=== PATIENT | male | born 1945 | race Caucasian/White ===

== ENCOUNTER → 2017-07-13 15:02 | Outpatient (CLI) | payer MEDICARE, OTHER, SELFPAY ==
[2017-07-13 16:23] LABS: Absolute Lymphocyte Count 1.13 X10^3/ul (0.83-4.51); Absolute Neutrophil Count 4.9 X10^3/uL (2.0-7.7); Basophil# 0.01 X10^3/uL; Basophil% 0.1 % (0-1); Eosinophil# 0.11 X10^3/uL; Eosinophils% 1.6 % (0-5); Hematocrit 42.9 % (40-54); Hemoglobin 14.4 g/dl (13.0-16.5); Lymphocyte # 1.13 X10^3/ul (4.0); Lymphocyte % 16.8 % (19-41); Mean Corp Hgb Conc 33.6 g/gl (32-36); Mean Corpuscular Hgb 29.6 pg (27.0-32.0); Mean Corpuscular Volume 88.1 fL (80-94); Mean Platelet Vol. 12.4 fl (6.2-12.0); Monocyte# 0.59 X10^3/uL; Monocyte% 8.8 % (0-10); Neutrophil # 4.86 X10^3/uL (2.7-7.7); Neutrophil % 72.6 % (47-70); Platelet Count 174 K/mm3 (150-450); RBC Distribution Width CV 12.5 % (11.6-14.6); RBC Distribution Width SD 39.9 fl (35.1-43.9); Red Blood Count 4.87 M/mm3 (4.6-6.2); White Blood Count 6.7 K/mm3 (4.4-11.0)
[2017-07-13 16:25] LABS: POSITIVE COUNT NO; POSITIVE DIFFERENTIAL NO; POSITIVE MORPHOLOGY NO
[2017-07-13 16:40] LABS: Vitamin D,25 Hydroxy 54.8 ng/mL (29.95-100.01)
[2017-07-13 16:47] LABS: ALB/GLOB Ratio 1.3 RATIO (0.9-2.4); AST(SGOT) 23 U/L (15-37); Alanine Aminotransfer ALT/SGPT 44 U/L (16-61); Alkaline Phosphatase 65 U/L (45-117); Anion Gap 10 (5-15); BUN 10 mg/dL (7-18); BUN/Creat Ratio 9.3 RATIO (10-20); Calcium,Total 8.8 mg/dL (8.5-10.1); Chloride 105 mmol/L (98-107); Creatinine, Serum 1.08 mg/dL (0.70-1.30); EST Glomerular Filtration Rate 72 mL/min (>60); Est Glom Filt Rate - Afr Amer 87 mL/min (>60); Glucose 97 mg/dL (74-106); PSA,Total - Annual Screen 0.22 ng/mL (0.00-4.00); Potassium 3.9 mmol/L (3.5-5.1); Sodium Level 141 mmol/L (136-145)
[2017-07-15 11:18] LABS: Hep C Antibodies <0.1 s/co ratio (0.0-0.9)
== END ==
PROVIDERS: Family Provider Internal Medicine; PCP Internal Medicine; Visit Provider Family Medicine Geriatric Medicine
DX: I10 Essential (primary) hypertension (principal); E55.9 Vitamin D deficiency, unspecified; Z12.5 Encounter for screening for malignant neoplasm of prostate; Z13.89 Encounter for screening for other disorder
CPT/HCPCS: 36415; 80053; 82306; 84153; 84443; 85025; 86803; G0103

== ENCOUNTER → 2017-07-15 08:16 | Outpatient (CLI) | payer MEDICARE, OTHER, SELFPAY ==
--- NOTE | 2017-07-15 08:21 | US_ITS ---
PROCEDURES: ULTRASOUND AORTA REASON FOR EXAM: Male, 72 years old. Screening for abdominal aortic aneurysm. TECHNIQUE: Ultrasound evaluation of the aorta was performed with real-time and static wallace-scale imaging. Limited study due to overlying bowel gas. COMPARISON: None. FINDINGS: There is no elongation or tortuosity of the abdominal aorta. Aorta measures: Middle 2.3 cm. Distal 1.7 cm. Aorta measure transversely: Middle 1.6 cm. Distal 1.2 cm. Right iliac artery measures: 0.9 cm. Right iliac artery measure transversely: 0.8 cm. Left iliac artery measures: 0.8 cm. Left iliac artery measure transversely: 0.8 cm. There is no demonstrated aneurysm.. US/US ABD AORTA SCREEN/AAA IMPRESSION: Limited examination due to overlying bowel gas. No abdominal aortic aneurysm is seen. Electronically Signed: Alfredo Parker MD at 9:54 EDT Tel [phone], Service support ,
== END ==
PROVIDERS: Family Provider Family Medicine Geriatric Medicine; PCP Family Medicine Geriatric Medicine; Visit Provider Family Medicine Geriatric Medicine
DX: I71.4 Abdominal aortic aneurysm, without rupture (principal)
CPT/HCPCS: 76706

== ENCOUNTER → 2017-10-17 13:42 | Outpatient (CLI) | payer MEDICARE, OTHER, SELFPAY ==
--- NOTE | 2017-10-17 14:28 | MRI_ITS ---
STUDY: MRI RIGHT HIP REASON FOR EXAM: Right hip/thigh/groin pain status post fall 8 days ago. TECHNIQUE: Standardized fat and water weighted pulse sequences were obtained in all 3 orthogonal planes. COMPARISON: None. FINDINGS: Normal hip joint without articular joint space narrowing. There is a nondisplaced fracture of the right supra-acetabular bone (T1 coronal images 14-16) with associated bone edema. There is a tear of the right anterosuperior labrum (proton-density sagittal image 13). Normal femoral head. Normal femoral neck and intratrochanteric region. Normal gluteus minimus, medius and iliopsoas tendons and distal insertions. There is mild right iliopsoas bursitis inversion recovery coronal image 22). There are nondisplaced fractures of the ischial aspect of the right superior obturator ring (T1 coronal image 20) and inferior aspect of the right obturator ring (inversion recovery axial image 30). Normal pubic symphysis. Normal ischial tuberosity. Normal origin of the hamstring tendons. Normal visualized sacroiliac joint, and sacral ala. There is mild edema in the right obturator externus muscle (inversion recovery axial image 26). MRI/Lower Ext Joint Only (Routine) IMPRESSION: Nondisplaced fractures of the right supra-acetabular bone and right obturator ring. Mild right iliopsoas bursitis. Tear of the right anterosuperior labrum. Mild edema in the right obturator externus muscle. N.B. : The above information has been verbally conveyed by Ricardo Flores MD to , Covering Physician, on 10/21/2017 15:31:06 (ET). Electronically Signed: Ricardo Flores MD at 15:44 EDT Tel , Service support ,
== END ==
PROVIDERS: Family Provider Family Medicine Geriatric Medicine; PCP Family Medicine Geriatric Medicine; Visit Provider Family Medicine Geriatric Medicine
DX: M25.551 Pain in right hip (principal)
CPT/HCPCS: 73721

== ENCOUNTER → 2018-01-16 14:01 | Outpatient (CLI) | payer MEDICARE, OTHER, SELFPAY ==
[2018-01-16 16:41] LABS: Absolute Lymphocyte Count 1.17 X10^3/ul (0.83-4.51); Absolute Neutrophil Count 5.2 X10^3/uL (2.0-7.7); Basophil# 0.01 X10^3/uL; Basophil% 0.1 % (0-1); Eosinophil# 0.04 X10^3/uL; Eosinophils% 0.6 % (0-5); Hematocrit 41.2 % (40-54); Hemoglobin 13.9 g/dl (13.0-16.5); Lymphocyte # 1.17 X10^3/ul (4.0); Lymphocyte % 17.1 % (19-41); Mean Corp Hgb Conc 33.7 g/gl (32-36); Mean Corpuscular Volume 91.8 fL (80-94); Mean Platelet Vol. 11.6 fl (6.2-12.0); Monocyte# 0.41 X10^3/uL; Neutrophil # 5.19 X10^3/uL (2.7-7.7); Neutrophil % 76.1 % (47-70); Platelet Count 189 K/mm3 (150-450); RBC Distribution Width CV 13.3 % (11.6-14.6); Red Blood Count 4.49 M/mm3 (4.6-6.2); Vitamin D,25 Hydroxy 49.8 ng/mL (29.95-100.01); White Blood Count 6.8 K/mm3 (4.4-11.0)
[2018-01-16 16:47] LABS: ALB/GLOB Ratio 1.3 RATIO (0.9-2.4); AST(SGOT) 18 U/L (15-37); Alanine Aminotransfer ALT/SGPT 43 U/L (16-61); Albumin, Serum 3.8 g/dL (3.2-5.0); Alkaline Phosphatase 60 U/L (45-117); Anion Gap 8 (5-15); BUN 15 mg/dL (7-18); BUN/Creat Ratio 15.6 RATIO (10-20); Calcium,Total 8.4 mg/dL (8.5-10.1); Chloride 105 mmol/L (98-107); Creatinine, Serum 0.96 mg/dL (0.70-1.30); EST Glomerular Filtration Rate 82 mL/min (>60); Est Glom Filt Rate - Afr Amer 99 mL/min (>60); Globulin 2.9 g/dL (2.2-4.2); Glucose 121 mg/dL (74-106); Potassium 4.2 mmol/L (3.5-5.1); Protein, Total 6.7 g/dL (6.4-8.2); Sodium Level 140 mmol/L (136-145); Thyroid Stim Hormone (TSH) 2.06 uIU/mL (0.358-3.74)
[2018-01-16 17:24] LABS: POSITIVE COUNT NO; POSITIVE DIFFERENTIAL NO; POSITIVE MORPHOLOGY NO
== END ==
PROVIDERS: Family Provider Family Medicine Geriatric Medicine; PCP Family Medicine Geriatric Medicine; Visit Provider Family Medicine Geriatric Medicine
DX: E11.9 Type 2 diabetes mellitus without complications (principal); I10 Essential (primary) hypertension; E55.9 Vitamin D deficiency, unspecified
CPT/HCPCS: 36415; 80053; 82306; 84443; 85025

== ENCOUNTER → 2018-04-04 16:49 | Outpatient (CLI) | payer MEDICARE, OTHER, SELFPAY | PROVIDERS: Family Provider Family Medicine Geriatric Medicine; PCP Family Medicine Geriatric Medicine; Referring Provider Family Medicine Geriatric Medicine; Visit Provider Family Medicine Geriatric Medicine | DX: R69 Illness, unspecified (principal) | CPT/HCPCS: 87633 ==

== ENCOUNTER → 2018-04-24 15:26 | Outpatient (CLI) | payer MEDICARE, OTHER, SELFPAY ==
--- NOTE | 2018-04-24 13:15 | COLBX_PTH ---
PATIENT: ANOOP BLANCO LOC: [facility] U#:[id number] AGE/SX: 79/M ROOM: RE04/24/[address]: Dr. Emre Armstrong MD : 1945 BED: DIS: SPEC #: [id number] RECD: 04/24/18 15:14 STATUS: PARISH CARBALLOTanja #: [id number] YUSUF: 04/24/18 13:[address]: Emre Armstrong DEPT: SURGICAL PATHOLOGY RECD BY: Tiffany Vergara ENTERED: 04/25/18 07:35 SP TYPE: COLON BX OTHR DR: Dr. Nahun Grady MD [facility] Tissues: Sigmoid colon biopsy Procedures: Surgery Specimen Level IV HEADER OPERATION: Colonoscopy with biopsy PRE-OP DIAGNOSIS: Screening / polyp TISSUE SUBMITTED: Distal sigmoid polyp, rule out adenoma MICROSCOPIC DIAGNOSIS Distal sigmoid colon polyp, biopsy: Tubular adenoma. AM:jax 04/25/18 MICROSCOPIC DESCRIPTION Slides are reviewed. GROSS DESCRIPTION Received in fixative is one container labeled with the patient's name and designated distal sigmoid. The specimen consists of multiple irregular fragments of light hampton soft tissue that in aggregate measure 0.6 x 0.2 x 0.1 cm. The specimen is totally submitted in one cassette. / AM:jax 04/24/18 TC:5 CPT: 29880
== END ==
PROVIDERS: Family Provider Family Medicine Geriatric Medicine; PCP Family Medicine Geriatric Medicine; Referring Provider Internal Medicine Gastroenterology; Visit Provider Internal Medicine Gastroenterology
DX: Z13.9 Encounter for screening, unspecified (principal); D12.5 Benign neoplasm of sigmoid colon
CPT/HCPCS: 88305

== ENCOUNTER → 2018-07-17 14:35 | Outpatient (CLI) | payer MEDICARE, OTHER, SELFPAY ==
[2018-07-17 17:09] LABS: Absolute Neutrophil Count 6.2 X10^3/uL (2.0-7.7); Basophil# 0.01 X10^3/uL; Basophil% 0.1 % (0-1); Eosinophil# 0.03 X10^3/uL; Eosinophils% 0.4 % (0-5); Hematocrit 42.5 % (40-54); Hemoglobin 14.4 g/dl (13.0-16.5); Lymphocyte % 12.7 % (19-41); Mean Corp Hgb Conc 33.9 g/gl (32-36); Mean Corpuscular Volume 91.4 fL (80-94); Mean Platelet Vol. 11.8 fl (6.2-12.0); Monocyte# 0.65 X10^3/uL; Monocyte% 8.3 % (0-10); Neutrophil # 6.16 X10^3/uL (2.7-7.7); Neutrophil % 78.4 % (47-70); Platelet Count 233 K/mm3 (150-450); RBC Distribution Width CV 13.2 % (11.6-14.6); RBC Distribution Width SD 43.6 fl (35.1-43.9); Red Blood Count 4.65 M/mm3 (4.6-6.2); White Blood Count 7.9 K/mm3 (4.4-11.0)
[2018-07-17 17:10] LABS: POSITIVE COUNT NO; POSITIVE DIFFERENTIAL NO; POSITIVE MORPHOLOGY NO
[2018-07-17 17:24] LABS: Vitamin D,25 Hydroxy 39.5 ng/mL (29.95-100.01)
[2018-07-17 17:30] LABS: ALB/GLOB Ratio 1.6 RATIO (0.9-2.4); AST(SGOT) 34 U/L (15-37); Alanine Aminotransfer ALT/SGPT 46 U/L (16-61); Albumin, Serum 4.1 g/dL (3.2-5.0); Alkaline Phosphatase 55 U/L (45-117); Anion Gap 6 (5-15); BUN 16 mg/dL (7-18); BUN/Creat Ratio 15.8 RATIO (10-20); Calcium,Total 8.6 mg/dL (8.5-10.1); Chloride 106 mmol/L (98-107); Creatinine, Serum 1.01 mg/dL (0.70-1.30); EST Glomerular Filtration Rate 77 mL/min (>60); Est Glom Filt Rate - Afr Amer 93 mL/min (>60); Globulin 2.6 g/dL (2.2-4.2); Glucose 95 mg/dL (74-106); Potassium 3.9 mmol/L (3.5-5.1); Protein, Total 6.7 g/dL (6.4-8.2); Sodium Level 137 mmol/L (136-145)
== END ==
PROVIDERS: Family Provider Family Medicine Geriatric Medicine; PCP Family Medicine Geriatric Medicine; Visit Provider Family Medicine Geriatric Medicine
DX: E11.9 Type 2 diabetes mellitus without complications (principal); I10 Essential (primary) hypertension; E55.9 Vitamin D deficiency, unspecified
CPT/HCPCS: 36415; 80053; 82306; 84443; 85025

== ENCOUNTER → 2018-09-18 12:07 | Outpatient (CLI) | payer MEDICARE, OTHER, SELFPAY ==
--- NOTE | 2018-09-18 12:15 | RAD_ITS ---
STUDY: X-RAY - PELVIS AND BILATERAL HIPS REASON FOR EXAM: Male, 73 years old. TECHNIQUE: AP view of the pelvis.? 2 views of the right hip, and 2 views of the left hip were obtained. COMPARISON: None. FINDINGS: There is a non-specific bowel gas pattern. Normal visualized soft tissue structures. Normal bilateral iliac wings, sacroiliac joints and visualized sacrum. Normal bilateral superior and inferior pubic rami. Normal pubic symphysis. Normal bilateral ischial tuberosities. Normal visualized right femoral head. Normal right acetabulum. Normal right hip joint. Normal visualized left femoral head. Normal left acetabulum. Normal left hip joint. Minimal atherosclerotic changes of the femoral arteries. RAD/Hips B/L min 2 views w/ Pelvis IMPRESSION: Normal x-ray examination of the pelvis and bilateral hips. Electronically Signed: Isabel Rodriguez, at 15:04 EDT Tel , Service support ,
--- NOTE | 2018-09-18 12:15 | RAD_ITS ---
STUDY: X-RAY - LUMBAR SPINE REASON FOR EXAM: Male, 73 years old. LOW BACK PAIN AND BILAT HIP PAIN. RT HIP ( and gt;) LT HIP. HX PELVIS FX TECHNIQUE: 5 view(s) of the lumbar spine were obtained. COMPARISON: None FINDINGS: Normal lumbar lordosis. There is no spondylolisthesis on extension. There is multilevel endplate spondylosis of the lumbar vertebrae. There is multi-level degenerative disc disease with multi-level disc space narrowing. There is atherosclerotic calcification of the abdominal aorta. RAD/L/S Spine w Bend Min 6 Vw IMPRESSION: Degenerative changes of the spine. Electronically Signed: Felicia Magdaleno MD at 14:27 EDT Tel , Service support ,
== END ==
PROVIDERS: Family Provider Family Medicine Geriatric Medicine; PCP Family Medicine Geriatric Medicine; Referring Provider Family Medicine Geriatric Medicine; Visit Provider Family Medicine Geriatric Medicine
DX: M54.5 Low back pain (principal); M25.551 Pain in right hip; M25.552 Pain in left hip
CPT/HCPCS: 72114; 73521

== ENCOUNTER → 2018-11-23 13:23 | Outpatient (CLI) | payer MEDICARE, OTHER, SELFPAY ==
[2018-10-31 13:54] VITALS: BMI 25.9
--- NOTE | 2018-11-23 13:24 | ECHOD_ITS ---
Reason For Study: S/P CABG Procedure This was a 2D Doppler, Color Flow transthoracic echocardiogram. Exam performed in department. Left Ventricle Normal size and thickness. The estimated ejection fraction is 65 %. Stage 1 diastolic dysfunction. No regional wall motion abnormalities noted. Right Ventricle Mildly dilated right ventricle. Normal systolic function. Atria Normal left atrium. Normal right atrium. Normal atrial septum. Mitral Valve The mitral valve is structurally normal. No prolapse or stenosis seen. Tricuspid Valve Normal tricuspid valve. Trivial tricuspid valve insufficiency. Right ventricular systolic pressure estimated to be 32 mmHg. Aortic Valve Trisinus/trileaflet aortic valve. Normal aortic valve. Pulmonic Valve Normal pulmonic valve. Great Vessels Normal aortic root. Normal arch. Normal inferior vena cava. Inferior vena cava collapse with sniff. Pericardium/Pleural No pericardial effusion. MMode/2D Measurements & Calculations LVIDd: 4.9 cm IVSd: 0.93 cm Ao root diam: 3.1 cm LVIDs: 3.3 cm LVPWd: 0.88 cm RVDd: 3.5 cm FS: 32.9 % LAV(MOD-bp): 48.8 ml LA A4 area: 17.4 cm2 LA dimension(2D): 3.4 cm LAV(MOD-bp) Indexed: 26.7 ml/m2 LAV(MOD-sp2): 50.7 ml LAV(MOD-sp4): 45.4 ml RA A4 area: 12.6 cm2 Time Measurements MV dec time: 0.23 sec Doppler Measurements & Calculations MV E max henrry: 64.8 cm/sec Lat Peak E' Henrry: 13.4 cm/sec Med Peak E' Henrry: 6.7 cm/sec MV A max henrry: 74.5 cm/sec E/E' lat: 4.8 E/E' med: 9.7 MV E/A: 0.87 Ao V2 max: 150.8 cm/sec LV V1 max: 112.3 cm/sec PA V2 max: 126.5 cm/sec Ao max P.1 mmHg LV V1 max P.0 mmHg TR max henrry: 255.8 cm/sec TR max P.6 mmHg Interpretation Summary The estimated ejection fraction is 65 %. Stage 1 diastolic dysfunction. Mildly dilated right ventricle. Trivial tricuspid valve insufficiency. Right ventricular systolic pressure estimated to be 32 mmHg. There is no comparison study available. Ordering Physician: Carlos Britt Referring Physician: Nahun Grady Chi Performed By: Mel Mahmood RDCS, RVT
== END ==
PROVIDERS: Family Provider Family Medicine Geriatric Medicine; PCP Family Medicine Geriatric Medicine; Referring Provider Internal Medicine Cardiovascular Disease; Visit Provider Internal Medicine Cardiovascular Disease
DX: I25.10 Atherosclerotic heart disease of native coronary artery without angina pectoris (principal); Z95.1 Presence of aortocoronary bypass graft
CPT/HCPCS: 93306

== ENCOUNTER → 2019-01-15 10:34 | Outpatient (CLI) | payer MEDICARE, OTHER, SELFPAY ==
[2019-01-08 08:48] VITALS: BMI 26.6
--- NOTE | 2019-01-15 11:07 | RAD_ITS ---
STUDY: X-RAY - ABDOMEN/PELVIS REASON FOR EXAM: Male, 73 years old. History of diarrhea. TECHNIQUE: AP supine and upright views of the abdomen and pelvis. COMPARISON: None. FINDINGS: Normal visualized lung bases. There is an abundance of fecal material throughout the colon. There is no demonstrated free abdominal air. The visualized liver, spleen and kidneys are grossly normal in size and morphology. Normal soft tissue structures. Minimal dextroscoliosis. RAD/Abd Inc Decub and/or Erect IMPRESSION: Large amount of fecal material is seen in the colon. Electronically Signed: Alfredo Parker, at 14:03 EDT , Service support ,
[2019-01-15 12:32] LABS: Absolute Neutrophil Count 5.3 X10^3/uL (2.0-7.7); Basophil# 0.02 X10^3/uL; Basophil% 0.3 % (0-1); Eosinophil# 0.04 X10^3/uL; Eosinophils% 0.6 % (0-5); Hematocrit 46.4 % (40-54); Hemoglobin 14.9 g/dL (13.0-16.5); Lymphocyte % 13.3 % (19-41); Mean Corp Hgb Conc 32.1 g/dL (32-36); Mean Corpuscular Hgb 29.2 pg (27.0-32.0); Mean Platelet Vol. 11.5 fl (6.2-12.0); Monocyte# 0.45 X10^3/uL; Monocyte% 6.7 % (0-10); NRBC Flagged by Analyzer 0 % (0-5); Neutrophil # 5.32 X10^3/uL (2.7-7.7); Neutrophil % 78.8 % (47-70); Platelet Count 205 K/mm3 (150-450); RBC Distribution Width CV 14.8 % (11.6-14.6); RBC Distribution Width SD 49.9 fl (35.1-43.9); White Blood Count 6.8 K/mm3 (4.4-11.0)
[2019-01-15 13:05] LABS: Vitamin D,25 Hydroxy 58.6 ng/mL (29.95-100.01)
[2019-01-15 13:11] LABS: ALB/GLOB Ratio 1.4 RATIO (0.9-2.4); AST(SGOT) 20 U/L (15-37); Alanine Aminotransfer ALT/SGPT 39 U/L (16-61); Albumin, Serum 3.9 g/dL (3.2-5.0); Alkaline Phosphatase 64 U/L (45-117); Anion Gap 8 (5-15); BUN 16 mg/dL (7-18); BUN/Creat Ratio 16.3 RATIO (10-20); Calcium,Total 8.7 mg/dL (8.5-10.1); Chloride 102 mmol/L (98-107); Creatinine, Serum 0.98 mg/dL (0.70-1.30); EST Glomerular Filtration Rate 79 mL/min (>60); Est Glom Filt Rate - Afr Amer 96 mL/min (>60); Globulin 2.7 g/dL (2.2-4.2); Glucose 182 mg/dL (74-106); Potassium 4.4 mmol/L (3.5-5.1); Protein, Total 6.6 g/dL (6.4-8.2); Sodium Level 138 mmol/L (136-145); Thyroid Stim Hormone (TSH) 2.16 uIU/mL (0.358-3.74)
== END ==
LOC: POLAB3 10:35 → RAD 11:03
PROVIDERS: Family Provider Family Medicine Geriatric Medicine; PCP Family Medicine Geriatric Medicine; Referring Provider Family Medicine Geriatric Medicine; Visit Provider Family Medicine Geriatric Medicine
DX: R19.7 Diarrhea, unspecified (principal); E11.9 Type 2 diabetes mellitus without complications; I10 Essential (primary) hypertension; E55.9 Vitamin D deficiency, unspecified
CPT/HCPCS: 36415; 74019; 80053; 82306; 84443; 85025

== ENCOUNTER 2019-02-16 10:00 | Outpatient (RCR) | payer MEDICARE, OTHER, SELFPAY ==
[2018-10-31 13:54] VITALS: BMI 25.9
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
--- NOTE | 2019-01-10 11:28 | HP.PTREVAL ---
Nahun Grady MD, It has been my pleasure to treat ANOOP BLANCO over the last 11 visits for LUMBAR RADICULOPATHY. Please see the progress note below for an update on the physical therapy plan of care! Subjective: PATIENT REPORTS DECREASED PAIN AFTER THERAPY. HE ALSO REPORTS HE CAN WALK A LITTLE BIT BETTER BUT IT STILL HURTS TO WALK. STILL GETTING INTERMITTENT ANNABEL THIGH PAIN RIGHT > LEFT. 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 PATIENT ALREADY HAS A MEMBERSHIP HE CAN USE. UPON EXAM TODAY: ROM deficit: PATIENT CONTINUES TO HAVE DECREASED RIGHT HIP ER BY APPROX 50% COMPARED TO LEFT. TIGHT ANNABEL HS'S AND GASTROC SOLEUS COMPLEX'S. Reflexes: NT. Dural Signs: NEGATIVE ANNABEL LE'S. Lumbar mvmt loss: flex - MOD. ext - MOD TO AKASH - CENTRAL LBP. R SG - MOD. L SG - MOD. Core strength: POOR Plan Plan: CONT PT DECREASING TO 2 TIMES A WEEK AND HELPING PATIENT TRANSITION TO GYM EQUIPMENT APPROPRIATE FOR POSTURE CORRECTION/STRENGTHENING, INSTRUCTION IN APPROPRIATE BODY MECHANICS AND ACTIVITY MODIFICATIONS. DLS STARTING WITH A NEUTRAL SPINE PROGRESSING ROM TOLERATED. ANNABEL LE ROM, STRETCHING AND STRENGTHENING. HEP INSTRUCTION. Goals Goal 1:: DECREASE C/O LOW BACK AND HIP PAIN Goal Time Frame: 4-6 Weeks Goal 2:: IMPROVE WALKING, STANDING AND HOMEMAKING FUNCTION Goal Time Frame: 4-6 Weeks Goal 3:: INSTRUCT IN PROPHYLAXIS Goal Time Frame: 4-6 Weeks Anticipated Interventions Patient/Client Instruction: Educate patient on: Condition, Plan of Care, Risk Factors, Benefits of Fitness Program For the Purpose of:: To improve self management Therapeutic Exercise to Include: Strength training, Body mechanics, Postural training, Flexibilty training, In an aquatic setting, Dynamic Lumbar Stabilization Comment: CONSIDER AQUATIC THERAPY IF NEEDED. For the Purpose of:: To decrease pain, To improve muscle performance and motor function, To increase tolerance to activity/condition/position, To improve ability of physical actions for home/community/work/leisure, To improve gait and locomotor functions Cryotherapy (ice pack, ice massage): Yes Thermo therapy (hot pack): Yes Ultrasound (thermal/non thermal): Yes For the Purpose of:: To decrease pain, To improve nutrient delivery to tissue Please do not hesitate to contact me at [phone] by phone or if you have questions or concerns regarding this new plan of care! Sincerely, Aissatou Cardozo, PT, Cert MDT
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
--- NOTE | 2019-02-16 12:46 | HP.PTDCSUM ---
HP - PT D/C Summary It has been my pleasure to treat ANOOP BLANCO under orders from Nahun Grady MD, for the diagnosis of LUMBAR RADICULOPATHY for a total of 19 visit(s). Discharge Date: 02/16/19 Please see the following information for a summary of their discharge status. - Subjective Subjective: PATIENT REPORTS HE KNOWS HOW TO DO HIS EX'S NOW. 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 STATES IT HURT FOR 3 DAYS. PATIENT REPORTS THAT OVER-ALL HE DEFINATELY FEELS LIKE HE IS GETTING STRONGER NOW. - Pain LOW BACK Pain Intensity (Out of 10): 0 - Overall Improvement % Improvement: 80 - Objective Objective/Function: ALL GOALS MET. PATIENT IS INDEP WITH A GYM EX PROGRAM. UPON EXAM TODAY: Lumbar mvmt loss: flex - MIN. ext - MOD TO AKASH. R SG - MOD. L SG - MOD - Goals Goal 1:: DECREASE C/O LOW BACK AND HIP PAIN Goal Progress: Goal Met Goal 2:: IMPROVE WALKING, STANDING AND HOMEMAKING FUNCTION Goal Progress: Goal Met Goal 3:: INSTRUCT IN PROPHYLAXIS Goal Progress: Goal Met - Plan Plan: D/C TO INDEP GYM AND HOME PROGRAMS. PATIENT IS AGREEABLE TO DISCHARGE. - D/C Information If there are questions or concerns regarding this patient's physical therapy, please feel free to call me at [phone]. Thank you for the referral of this patient. Sincerely, Aissatou Cardozo, PT, Cert MDT
== END 2019-02-16 19:00 | disposition home or self-care (01) ==
LOC: PT 10:00
PROVIDERS: Family Provider Family Medicine Geriatric Medicine; PCP Family Medicine Geriatric Medicine; Referring Provider Family Medicine Geriatric Medicine; Visit Provider Family Medicine Geriatric Medicine
DX: M54.5 Low back pain (principal)
CPT/HCPCS: 97035; 97110; 97162; 97530

== ENCOUNTER → 2019-05-18 09:12 | Outpatient (CLI) | payer MEDICARE, OTHER, SELFPAY ==
[2019-05-17 13:35] VITALS: BMI 25.9
[2019-05-18 10:04] LABS: AST(SGOT) 17 U/L (15-37); Alanine Aminotransfer ALT/SGPT 34 U/L (16-61); Alkaline Phosphatase 72 U/L (45-117); Cholesterol 139 mg/dL (200); High Density Lipoprotein 49 mg/dL; Triglycerides 189 mg/dL; Very Low Density Lipoprotein 38 mg/dL (5-40)
== END ==
PROVIDERS: PCP Family Medicine Geriatric Medicine; Referring Provider Internal Medicine Cardiovascular Disease; Visit Provider Internal Medicine Cardiovascular Disease
DX: E78.5 Hyperlipidemia, unspecified (principal); I25.10 Atherosclerotic heart disease of native coronary artery without angina pectoris
CPT/HCPCS: 36415; 80061; 80076

== ENCOUNTER → 2019-07-05 12:29 | Outpatient (CLI) | payer MEDICARE, OTHER, SELFPAY ==
[2019-05-17 13:35] VITALS: BMI 25.9
--- NOTE | 2019-07-05 12:32 | MRI_ITS ---
STUDY: MRI LUMBAR SPINE WITHOUT CONTRAST REASON FOR EXAM: Male, 74 years old. fall 2 yrs ago, R back pain into R leg, no relief with PT TECHNIQUE: Standardized fat and water weighted pulse sequences were obtained in the sagittal and axial planes. COMPARISON: None FINDINGS: No compression deformity or fracture line or bone marrow edema is present. Normal lumbar lordosis. There is no substantial scoliosis. Normal conus medullaris that terminates at the T12-L1 level. L1-2: A small disc osteophyte complex is present at the anterior aspect space. No posterior disc herniation or bulging is present. Normal bilateral facet joints. Normal central canal and bilateral lateral recesses. Normal bilateral intervertebral neural foramina. L2-3: Mild endplate degenerative signal is present. The disc is desiccated. Normal disc height and morphology. Normal bilateral facet joints. Normal central canal and bilateral lateral recesses. Normal bilateral intervertebral neural foramina. L3-4: Normal endplates. The disc is desiccated. Normal disc height and morphology. Normal bilateral facet joints. Normal central canal and bilateral lateral recesses. Normal bilateral intervertebral neural foramina. L4-5: Normal endplates. Moderate central canal stenosis is present with bilateral lateral recess stenosis and nerve root compression due to significant facet joint and ligamenta flava hypertrophy combined with mild diffuse disc bulging. The disc space is mildly to moderately narrowed. Normal bilateral intervertebral neural foramina. L5-S1: Normal endplates. Normal disc height, hydration and morphology. The facet joints are mildly to moderately hypertrophied and degenerated. Normal central canal and bilateral lateral recesses. Normal bilateral intervertebral neural foramina. Normal visualized sacral ala. There is mild paraspinal muscular atrophy. Colonic diverticulosis partially visualized. MRI/Spine Lumbar (Routine) IMPRESSION: 1. Multilevel degenerative changes, as described above. 2. Moderate central canal stenosis at L4-L5 primarily due to ligamenta flava and facet joint hypertrophy. Electronically Signed: Fermin Aly MD at 14:09 EDT , Service support ,
== END ==
PROVIDERS: PCP Family Medicine Geriatric Medicine; Referring Provider Family Medicine Geriatric Medicine; Visit Provider Family Medicine Geriatric Medicine
DX: M48.061 Spinal stenosis, lumbar region without neurogenic claudication (principal)
CPT/HCPCS: 72148

== ENCOUNTER → 2019-07-19 13:44 | Outpatient (CLI) | payer MEDICARE, OTHER, SELFPAY ==
[2019-05-17 13:35] VITALS: BMI 25.9
[2019-07-19 15:04] LABS: Absolute Lymphocyte Count 0.97 X10^3/uL (0.83-4.51); Absolute Neutrophil Count 10.8 X10^3/uL (2.0-7.7); Basophil# 0.03 X10^3/uL; Basophil% 0.2 % (0-1); Eosinophil# 0.02 X10^3/uL; Eosinophils% 0.2 % (0-5); Hematocrit 47.3 % (40-54); Hemoglobin 14.8 g/dL (13.0-16.5); Lymphocyte # 0.97 X10^3/ul (4.0); Lymphocyte % 7.7 % (19-41); Mean Corp Hgb Conc 31.3 g/dL (32-36); Mean Corpuscular Hgb 25.9 pg (27.0-32.0); Mean Corpuscular Volume 82.7 fL (80-94); Mean Platelet Vol. 12.3 fl (6.2-12.0); Monocyte# 0.78 X10^3/uL; Monocyte% 6.2 % (0-10); NRBC Flagged by Analyzer 0 % (0-5); Neutrophil % 85.3 % (47-70); Platelet Count 228 K/mm3 (150-450); RBC Distribution Width CV 14.6 % (11.6-14.6); RBC Distribution Width SD 42.7 fl (35.1-43.9); Red Blood Count 5.72 M/mm3 (4.6-6.2); White Blood Count 12.7 K/mm3 (4.4-11.0)
[2019-07-19 15:38] LABS: ALB/GLOB Ratio 1.6 RATIO (0.9-2.4); AST(SGOT) 15 U/L (15-37); Alanine Aminotransfer ALT/SGPT 32 U/L (16-61); Albumin, Serum 4.1 g/dL (3.2-5.0); Alkaline Phosphatase 60 U/L (45-117); Anion Gap 7 (5-15); BUN 24 mg/dL (7-18); BUN/Creat Ratio 23.8 RATIO (10-20); Chloride 101 mmol/L (98-107); Creatinine, Serum 1.01 mg/dL (0.70-1.30); EST Glomerular Filtration Rate 77 mL/min (>60); Est Glom Filt Rate - Afr Amer 93 mL/min (>60); Globulin 2.6 g/dL (2.2-4.2); Glucose 165 mg/dL (74-106); Potassium 4.3 mmol/L (3.5-5.1); Protein, Total 6.7 g/dL (6.4-8.2); Sodium Level 135 mmol/L (136-145); Thyroid Stim Hormone (TSH) 2.05 uIU/mL (0.358-3.74)
[2019-07-19 15:39] LABS: Vitamin D,25 Hydroxy 68.1 ng/mL
== END ==
PROVIDERS: PCP Family Medicine Geriatric Medicine; Referring Provider Family Medicine Geriatric Medicine; Visit Provider Family Medicine Geriatric Medicine
DX: I10 Essential (primary) hypertension (principal); E11.9 Type 2 diabetes mellitus without complications; E55.9 Vitamin D deficiency, unspecified
CPT/HCPCS: 36415; 80053; 82306; 84443; 85025

== ENCOUNTER → 2019-10-22 13:44 | Outpatient (CLI) | payer MEDICARE, OTHER, SELFPAY ==
[2019-05-17 13:35] VITALS: BMI 25.9
[2019-10-22 14:57] LABS: Absolute Lymphocyte Count 0.87 X10^3/uL (0.83-4.51); Absolute Neutrophil Count 5.7 X10^3/uL (2.0-7.7); Basophil# 0.02 X10^3/uL; Basophil% 0.3 % (0-1); Eosinophil# 0.04 X10^3/uL; Eosinophils% 0.6 % (0-5); Hematocrit 43.2 % (40-54); Hemoglobin 13.5 g/dL (13.0-16.5); Lymphocyte # 0.87 X10^3/ul (4.0); Mean Corp Hgb Conc 31.3 g/dL (32-36); Mean Corpuscular Hgb 26.8 pg (27.0-32.0); Mean Corpuscular Volume 85.7 fL (80-94); Mean Platelet Vol. 11.6 fl (6.2-12.0); Monocyte# 0.58 X10^3/uL; NRBC Flagged by Analyzer 0 % (0-5); Neutrophil # 5.69 X10^3/uL (2.7-7.7); Neutrophil % 78.7 % (47-70); Platelet Count 200 K/mm3 (150-450); RBC Distribution Width CV 15.3 % (11.6-14.6); RBC Distribution Width SD 47.5 fl (35.1-43.9); Red Blood Count 5.04 M/mm3 (4.6-6.2); White Blood Count 7.2 K/mm3 (4.4-11.0)
[2019-10-22 15:16] LABS: Vitamin D,25 Hydroxy 84.9 ng/mL
[2019-10-22 15:22] LABS: ALB/GLOB Ratio 1.4 RATIO (0.9-2.4); AST(SGOT) 23 U/L (15-37); Alanine Aminotransfer ALT/SGPT 36 U/L (16-61); Albumin, Serum 3.8 g/dL (3.2-5.0); Alkaline Phosphatase 54 U/L (45-117); Anion Gap 5 (5-15); BUN 16 mg/dL (7-18); BUN/Creat Ratio 16.9 RATIO (10-20); Chloride 105 mmol/L (98-107); Creatinine, Serum 0.95 mg/dL (0.70-1.30); EST Glomerular Filtration Rate 83 mL/min (>60); Est Glom Filt Rate - Afr Amer 100 mL/min (>60); Globulin 2.7 g/dL (2.2-4.2); Glucose 160 mg/dL (74-106); Potassium 4.4 mmol/L (3.5-5.1); Protein, Total 6.5 g/dL (6.4-8.2); Sodium Level 138 mmol/L (136-145); Thyroid Stim Hormone (TSH) 2.24 uIU/mL (0.358-3.74)
== END ==
PROVIDERS: PCP Family Medicine Geriatric Medicine; Visit Provider Family Medicine Geriatric Medicine
DX: E11.9 Type 2 diabetes mellitus without complications (principal); E55.9 Vitamin D deficiency, unspecified; I10 Essential (primary) hypertension
CPT/HCPCS: 36415; 80053; 82306; 84443; 85025

== ENCOUNTER → 2019-11-05 08:04 | Outpatient (CLI) | payer MEDICARE, OTHER, SELFPAY ==
[2019-05-17 13:35] VITALS: BMI 25.9
[2019-11-05 09:34] LABS: AST(SGOT) 22 U/L (15-37); Alanine Aminotransfer ALT/SGPT 35 U/L (16-61); Albumin, Serum 3.8 g/dL (3.2-5.0); Alkaline Phosphatase 54 U/L (45-117); Bilirubin, Direct 0.16 mg/dL (0.00-0.30); Cholesterol 105 mg/dL (200); Globulin 2.9 g/dL (2.2-4.2); High Density Lipoprotein 46 mg/dL; Protein, Total 6.7 g/dL (6.4-8.2); Triglycerides 125 mg/dL; Very Low Density Lipoprotein 25 mg/dL (5-40)
== END ==
PROVIDERS: PCP Family Medicine Geriatric Medicine; Referring Provider Internal Medicine Cardiovascular Disease; Visit Provider Internal Medicine Cardiovascular Disease
DX: E78.00 Pure hypercholesterolemia, unspecified (principal)
CPT/HCPCS: 36415; 80061; 80076

== ENCOUNTER → 2019-11-20 08:21 | Outpatient (CLI) | payer MEDICARE, OTHER, SELFPAY ==
[2019-11-20 08:18] VITALS: BMI 24.8
--- NOTE | 2019-11-20 08:23 | RAD_ITS ---
STUDY: X-RAY - LUMBAR SPINE REASON FOR EXAM: Male, 74 years old. RIGHT SIDE LBP TECHNIQUE: 4 view(s) of the lumbar spine were obtained. COMPARISON: 09/18/2018 FINDINGS: Normal lumbar lordosis. Mild dextroscoliosis. There is a normal alignment of the vertebrae. No subluxation on the flexion or extension views to suggest instability. There is multilevel endplate spondylosis of the lumbar vertebrae. There is multi-level degenerative disc disease with multi-level disc space narrowing. The soft tissue structures are unremarkable. RAD/L/S Spine Min 4 Views IMPRESSION: Mild dextroscoliosis with diffuse degenerative disc disease. No instability. Electronically Signed: Mauro Nunez MD at 16:50 EDT Tel , Service support ,
== END ==
PROVIDERS: PCP Family Medicine Geriatric Medicine; Referring Provider Orthopaedic Surgery; Visit Provider Orthopaedic Surgery
DX: M54.5 Low back pain (principal)
CPT/HCPCS: 72110

== ENCOUNTER → 2020-01-21 13:10 | Outpatient (CLI) | payer MEDICARE, OTHER, SELFPAY ==
[2020-01-21 14:01] LABS: Absolute Lymphocyte Count 1.18 X10^3/uL (0.83-4.51); Absolute Neutrophil Count 5.9 X10^3/uL (2.0-7.7); Basophil# 0.03 X10^3/uL; Basophil% 0.4 % (0-1); Eosinophil# 0.05 X10^3/uL; Eosinophils% 0.6 % (0-5); Hematocrit 46.4 % (40-54); Hemoglobin 13.8 g/dL (13.0-16.5); Lymphocyte # 1.18 X10^3/ul (4.0); Lymphocyte % 15.2 % (19-41); Mean Corp Hgb Conc 29.7 g/dL (32-36); Mean Corpuscular Hgb 24.9 pg (27.0-32.0); Mean Corpuscular Volume 83.6 fL (80-94); Mean Platelet Vol. 10.2 fl (6.2-12.0); Monocyte# 0.63 X10^3/uL; Monocyte% 8.1 % (0-10); NRBC Flagged by Analyzer 0 % (0-5); Neutrophil # 5.85 X10^3/uL (2.7-7.7); Neutrophil % 75.3 % (47-70); Platelet Count 328 K/mm3 (150-450); RBC Distribution Width CV 15.3 % (11.6-14.6); RBC Distribution Width SD 46.8 fl (35.1-43.9); Red Blood Count 5.55 M/mm3 (4.6-6.2); White Blood Count 7.8 K/mm3 (4.4-11.0)
[2020-01-21 14:58] LABS: ALB/GLOB Ratio 1.1 RATIO (0.9-2.4); AST(SGOT) 15 U/L (15-37); Alanine Aminotransfer ALT/SGPT 34 U/L (16-61); Albumin, Serum 3.6 g/dL (3.2-5.0); Alkaline Phosphatase 68 U/L (45-117); Anion Gap 8 (5-15); BUN 17 mg/dL (7-18); BUN/Creat Ratio 18.7 RATIO (10-20); Calcium,Total 9.2 mg/dL (8.5-10.1); Chloride 106 mmol/L (98-107); Creatinine, Serum 0.91 mg/dL (0.70-1.30); EST Glomerular Filtration Rate 87 mL/min (>60); Est Glom Filt Rate - Afr Amer 105 mL/min (>60); Globulin 3.4 g/dL (2.2-4.2); Glucose 134 mg/dL (74-106); Potassium 4.2 mmol/L (3.5-5.1); Sodium Level 143 mmol/L (136-145)
[2020-01-21 17:52] LABS: Vitamin D,25 Hydroxy 68.1 ng/mL
== END ==
PROVIDERS: PCP Family Medicine Geriatric Medicine; Visit Provider Family Medicine Geriatric Medicine
DX: E11.9 Type 2 diabetes mellitus without complications (principal); E55.9 Vitamin D deficiency, unspecified; I10 Essential (primary) hypertension
CPT/HCPCS: 36415; 80053; 82306; 84443; 85025

== ENCOUNTER → 2020-04-21 10:10 | Outpatient (CLI) | payer MEDICARE, OTHER, SELFPAY ==
[2020-04-21 12:49] LABS: Absolute Lymphocyte Count 1.17 X10^3/uL (0.83-4.51); Absolute Neutrophil Count 7.9 X10^3/uL (2.0-7.7); Basophil# 0.01 X10^3/uL; Basophil% 0.1 % (0-1); Eosinophil# 0.04 X10^3/uL; Eosinophils% 0.4 % (0-5); Hematocrit 44.7 % (40-54); Hemoglobin 13.2 g/dL (13.0-16.5); Lymphocyte # 1.17 X10^3/ul (4.0); Mean Corp Hgb Conc 29.5 g/dL (32-36); Mean Corpuscular Hgb 23.1 pg (27.0-32.0); Mean Corpuscular Volume 78.3 fL (80-94); Mean Platelet Vol. 12.5 fl (6.2-12.0); Monocyte# 0.64 X10^3/uL; Monocyte% 6.5 % (0-10); NRBC Flagged by Analyzer 0 % (0-5); Neutrophil % 80.7 % (47-70); Platelet Count 207 K/mm3 (150-450); RBC Distribution Width CV 14.9 % (11.6-14.6); RBC Distribution Width SD 42.3 fl (35.1-43.9); Red Blood Count 5.71 M/mm3 (4.6-6.2); White Blood Count 9.8 K/mm3 (4.4-11.0)
[2020-04-21 13:00] LABS: Vitamin D,25 Hydroxy 59.5 ng/mL
[2020-04-21 13:17] LABS: ALB/GLOB Ratio 1.3 RATIO (0.9-2.4); AST(SGOT) 17 U/L (15-37); Alanine Aminotransfer ALT/SGPT 33 U/L (16-61); Albumin, Serum 3.8 g/dL (3.2-5.0); Alkaline Phosphatase 59 U/L (45-117); Anion Gap 8 (5-15); BUN 19 mg/dL (7-18); BUN/Creat Ratio 19.2 RATIO (10-20); Calcium,Total 8.6 mg/dL (8.5-10.1); Chloride 105 mmol/L (98-107); Creatinine, Serum 0.99 mg/dL (0.70-1.30); EST Glomerular Filtration Rate 79 mL/min (>60); Est Glom Filt Rate - Afr Amer 95 mL/min (>60); Globulin 2.9 g/dL (2.2-4.2); Glucose 175 mg/dL (74-106); Potassium 4.4 mmol/L (3.5-5.1); Protein, Total 6.7 g/dL (6.4-8.2); Sodium Level 139 mmol/L (136-145); Thyroid Stim Hormone (TSH) 2.54 uIU/mL (0.358-3.74)
== END ==
PROVIDERS: PCP Family Medicine Geriatric Medicine; Visit Provider Family Medicine Geriatric Medicine
DX: E11.9 Type 2 diabetes mellitus without complications (principal); E55.9 Vitamin D deficiency, unspecified; I10 Essential (primary) hypertension
CPT/HCPCS: 36415; 80053; 82306; 84443; 85025

== ENCOUNTER 2020-06-13 09:00 | Outpatient (RCR) | payer MEDICARE, OTHER, SELFPAY ==
--- NOTE | 2020-02-08 13:58 | HP.PTEVAL ---
Patient's Visit Information ANOOP BLANCO is a 74 year old M referred to Physical Therapy by Dr. Janessa Brannon MD with a diagnosis of S/P L4-L5 LAMINECTOMY. Date of Evaluation: 02/08/20 Physical Therapist: Puneet Pedraza, PT, Cert MDT, OCS - Visit Plan Frequency: 2x /Week Duration: 8WEEKS Plan: PT INTERVENTIONS POSTURAL EX'S,DLS ABD/BACK,LE FLEXABLITY ,GENTLE STM LUMBAR PARASPINALS ,GENERAL CONDITIONING - Subjective This 74 y/o male presents to physical therapy s/p L4-5 laminectomy on 12/31/19. Patient had surgery done by DR Brannon at [facility]. Patient had lumbar pain many years worse for 2 1/2 years. Patient had MRI showed stenosis. Tried edpidural injection helped temporarly. Patient also had PT. Pror to surgery had radicular symptoms right leg. Currently patient has symmtrical pain. Patient aggraveting factors extended standing but walking makes back pain worse. Alleviating factors rest. Denies parathesia/tingling ,occasionally feet.Coughing/sneezing -. Bowel/bladder -.RTD Apr 08. Patient condition affects ADL's and housework tasks. Patient surgery affects QOL. SOCAIL: . 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 GAIT: reciprocal pattern. NEURO: denies parathesia/tingling,reflexes L3-4,L4-5,L5-S1. MMT: quads/hams 4/5,hip flexion 4-/5,ankle 5/5. LUMBAR ROM: flexion mod loss,extension mod loss,side glides min loss. FLEXABLITY: hams mod tight. INCSION: well approximate - Special Tests L/S Slump test left side: Negative L/S Slump test right side: Negative L/S Left Straight Leg Raise: Negative L/S Right Straight Leg Raise: Negative - Goals Goal 1:: I with HEP Goal Time Frame: 4-6 Weeks Goal 2:: Improve posture for ADLS' Goal Time Frame: 4-6 Weeks Goal 3:: Deccrease lumbar symptoms by 60% or > to improve function and QOL. Goal Time Frame: 4-6 Weeks Goal 4:: Patient to improve lumbar ROM for function of recovery. Goal Time Frame: 4-6 Weeks Goal 5:: Patient to improve back owestry score by 5 points or > to improve QOL. Goal Time Frame: 4-6 Weeks - Rehabilitation Potential Physical Therapy Diagnosis: This patient had s/p L4-5 LAMINECTOMY with decrease ROM lumbar,decrease strength and core stabilizers,LE tightness impairs ADL's and housework tasks thus benifit from skilled PT Rehabilitation Potential: Good - Anticipated Interventions Patient/Client Instruction: Educate patient on: Condition, Plan of Care For the Purpose of:: To decrease pain, To increase ROM, To improve muscle performance and motor function, To increase tolerance to activity/condition/position, To improve ability of physical actions for home/community/work/leisure, To improve health of tissue, To decrease soft tissue restriction, To increase flexibility/ROM, To reduce risk of recurrence, To improve ability to perform tasks related to life management Therapeutic Exercise to Include: Strength training, Postural training, Flexibilty training, Dynamic Lumbar Stabilization For the Purpose of:: To decrease pain, To increase ROM, To improve muscle performance and motor function, To improve ability to perform ADL's, To increase tolerance to activity/condition/position, To improve ability of physical actions for home/community/work/leisure, To improve health of tissue, To decrease soft tissue restriction, To increase flexibility/ROM, To reduce risk of recurrence, To improve ability to perform tasks related to life management Manual Therapy Techniques to Include: Soft tissue mobilization For the Purpose of:: To decrease pain, To increase ROM Thank you for the opportunity to evaluate your patient. For Medicare and Medicare HMO plans, please review the plan of care and approve it. It will need to be FAXED BACK to us at [phone] for Medicare purposes. For Medicare only, by signing this I certify the plan of care. Please let me know if there are questions or concerns regarding this plan of care. Physician Signature: Date:
--- NOTE | 2020-03-14 10:02 | HP.PTREVAL ---
Dr. Janessa Brannon MD, It has been my pleasure to treat ANOOP BLANCO over the last 10 visits for S/P L4-L5 LAMINECTOMY. Please see the progress note below for an update on the physical therapy plan of care! Subjective: Doing well Objective/Function: POSTURE: WFL. GAIT: reciprocal pattern mild foward posture. NEURO: intact. MMT: 4/5 quads/hams ,hip flexion 4-5/5,ankle 4/5. LUMBAR ROM: flexion min loss ,extension mid loss,. FLEXABLITY: hams mod tight Plan Plan: PT INTERVENTIONS POSTURAL EX'S,DLS ABD/BACK,LE FLEXABLITY ,GENTLE STM LUMBAR PARASPINALS ,GENERAL CONDITIONING Goals Goal 1:: I with HEP Goal Time Frame: 4-6 Weeks Goal Progress: Goal Met Goal 2:: Improve posture for ADLS' Goal Time Frame: 4-6 Weeks Goal Progress: Goal Met Goal 3:: Deccrease lumbar symptoms by 60% or > to improve function and QOL. Goal Time Frame: 4-6 Weeks Goal Progress: Goal Met Goal 4:: Patient to improve lumbar ROM for function of recovery. Goal Time Frame: 4-6 Weeks Goal Progress: Goal Met Goal 5:: Patient to improve back owestry score by 5 points or > to improve QOL. Goal Time Frame: 4-6 Weeks Goal Progress: Goal Met Anticipated Interventions Patient/Client Instruction: Educate patient on: Condition, Plan of Care For the Purpose of:: To decrease pain, To increase ROM, To improve muscle performance and motor function, To increase tolerance to activity/condition/position, To improve ability of physical actions for home/community/work/leisure, To improve health of tissue, To decrease soft tissue restriction, To increase flexibility/ROM, To reduce risk of recurrence, To improve ability to perform tasks related to life management Therapeutic Exercise to Include: Strength training, Postural training, Flexibilty training, Dynamic Lumbar Stabilization For the Purpose of:: To decrease pain, To increase ROM, To improve muscle performance and motor function, To improve ability to perform ADL's, To increase tolerance to activity/condition/position, To improve ability of physical actions for home/community/work/leisure, To improve health of tissue, To decrease soft tissue restriction, To increase flexibility/ROM, To reduce risk of recurrence, To improve ability to perform tasks related to life management Manual Therapy Techniques to Include: Soft tissue mobilization For the Purpose of:: To decrease pain, To increase ROM Please do not hesitate to contact me at [phone] by phone or if you have questions or concerns regarding this new plan of care! Sincerely, Puneet Pedraza, PT, Cert MDT, OCS
--- NOTE | 2020-04-11 10:47 | HP.PTREVAL_ITS ---
Dr. Janessa Brannon MD, It has been my pleasure to treat ANOOP BLANCO over the last 16 visits for S/P L4-L5 LAMINECTOMY. Please see the progress note below for an update on the physical therapy plan of care! Subjective: Reports stretching in the morning helps relieve pain. States walking causes right sides LBP. Reports the doctor would like him to continue with therapy with a new order. States walking causes pain still which is his biggest limitation. Objective/Function: Posture: reduced lumbar lordosis. MMT: Left hip flexor 5/5, quad 5/5, ham 4+/5, DF 5/5. Right hip flexor 4+/5, quad 5/5, ham 4+/5, DF 5/5. AROM: flexion 50%, extension 75%, right side bend 75%, left side bend 75%, right rotation 75%, left rotation 75%. Minimal right sided low back pain with AROM. Hamstrings: moderate limitation. Gait: Ambulates with moderate right limp. Tolerated all exercise this date with minimal/no reports of pain increase. Req uires minimal cueing to ensure correct form and repetitions. Plan Plan: Continue with POC 2x/per with PT interventions: PT INTERVENTIONS POSTURAL EX'S,DLS ABD/BACK,LE FLEXABLITY ,GENTLE STM LUMBAR PARASPINALS ,GENERAL CONDITIONING Goals Goal 1:: I with HEP Goal Time Frame: 4-6 Weeks Goal Progress: Goal Met Goal 2:: Improve posture for ADLS' Goal Time Frame: 4-6 Weeks Goal Progress: Goal Met Goal 3:: Deccrease lumbar symptoms by 90% or > to improve function and QOL.(update goal) Goal Time Frame: 4-6 Weeks Goal Progress: Progressing Goal 4:: Patient to improve lumbar ROM for function of recovery. Goal Time Frame: 4-6 Weeks Goal Progress: Progressing Goal 5:: Patient to improve back owestry score by 5 points or > from this date to improve QOL. (update goal) Goal Time Frame: 4-6 Weeks Goal Progress: Progressing Goal 6:: Patient will demonstrate the ability to ambulate 1/2 with no more than 5/10 pain in right low back. Goal Time Frame: 4-6 Weeks Anticipated Interventions Patient/Client Instruction: Educate patient on: Condition, Plan of Care For the Purpose of:: To decrease pain, To increase ROM, To improve muscle performance and motor function, To increase tolerance to activity/condition/position, To improve ability of physical actions for home/community/work/leisure, To improve health of tissue, To decrease soft tissue restriction, To increase flexibility/ROM, To reduce risk of recurrence, To improve ability to perform tasks related to life management Therapeutic Exercise to Include: Strength training, Postural training, Flexibilty training, Dynamic Lumbar Stabilization For the Purpose of:: To decrease pain, To increase ROM, To improve muscle performance and motor function, To improve ability to perform ADL's, To increase tolerance to activity/condition/position, To improve ability of physical actions for home/community/work/leisure, To improve health of tissue, To decrease soft tissue restriction, To increase flexibility/ROM, To reduce risk of recurrence, To improve ability to perform tasks related to life management Manual Therapy Techniques to Include: Soft tissue mobilization For the Purpose of:: To decrease pain, To increase ROM Please do not hesitate to contact me at [phone] by phone or if you have questions or concerns regarding this new plan of care! Sincerely, Puneet Pedraza, PT, Cert MDT, OCS
--- NOTE | 2020-05-09 10:48 | HP.PTREVAL ---
Dr. Janessa Brannon MD, It has been my pleasure to treat ANOOP BLANCO over the last 24 visits for S/P L4-L5 LAMINECTOMY. Please see the progress note below for an update on the physical therapy plan of care! Subjective: Patient states he is in a little bit more pain this date. Reports stretching in the morning helped. Objective/Function: POSTURE: mild foward posture. GAIT: reciprocal pattern mild antagic gait right side. NEURO: intact. PALAPTION: unremarkable. LUMBAR ROM: flexion min loss,extension min/mod loss slight discomfort right side,SG's min loss. MMT: quads/hams 4/5 ,4/5 hip flexion ,hip abd 4/5,ankle DF 5/5 Plan Plan: Continue with POC 2x/per with PT interventions: PT INTERVENTIONS POSTURAL EX'S,DLS ABD/BACK,LE FLEXABLITY ,GENTLE STM LUMBAR PARASPINALS ,GENERAL CONDITIONING Goals Goal 1:: I with HEP Goal Time Frame: 4-6 Weeks Goal Progress: Goal Met Goal 2:: Improve posture for ADLS' Goal Time Frame: 4-6 Weeks Goal Progress: Goal Met Goal 3:: Deccrease lumbar symptoms by 90% or > to improve function and QOL.(update goal) Goal Time Frame: 4-6 Weeks Goal Progress: Progressing Goal 4:: Patient to improve lumbar ROM for function of recovery. Goal Time Frame: 4-6 Weeks Goal Progress: Progressing Goal 5:: Patient to improve back owestry score by 5 points or > from this date to improve QOL. (update goal) Goal Time Frame: 4-6 Weeks Goal Progress: Progressing Goal 6:: Patient will demonstrate the ability to ambulate 1/2 with no more than 5/10 pain in right low back. Goal Time Frame: 4-6 Weeks Goal Progress: Progressing Anticipated Interventions Patient/Client Instruction: Educate patient on: Condition, Plan of Care For the Purpose of:: To decrease pain, To increase ROM, To improve muscle performance and motor function, To increase tolerance to activity/condition/position, To improve ability of physical actions for home/community/work/leisure, To improve health of tissue, To decrease soft tissue restriction, To increase flexibility/ROM, To reduce risk of recurrence, To improve ability to perform tasks related to life management Therapeutic Exercise to Include: Strength training, Postural training, Flexibilty training, Dynamic Lumbar Stabilization For the Purpose of:: To decrease pain, To increase ROM, To improve muscle performance and motor function, To improve ability to perform ADL's, To increase tolerance to activity/condition/position, To improve ability of physical actions for home/community/work/leisure, To improve health of tissue, To decrease soft tissue restriction, To increase flexibility/ROM, To reduce risk of recurrence, To improve ability to perform tasks related to life management Manual Therapy Techniques to Include: Soft tissue mobilization For the Purpose of:: To decrease pain, To increase ROM Please do not hesitate to contact me at [phone] by phone or if you have questions or concerns regarding this new plan of care! Sincerely, Puneet Pedraza, PT, Cert MDT, OCS
--- NOTE | 2020-06-13 09:28 | HP.PTDCSUM ---
It has been my pleasure to treat ANOOP BLANCO referred by Dr. Janessa Brannon MD, with the diagnosis of S/P L4-L5 LAMINECTOMY for a total of 32 visit(s). Discharge Date: 06/13/20 Please see the following information for a summary of their discharge status. Subjective: No pain..played golf did well Left Back Pain Intensity (Out of 10): 0 % Improvement: 90 Objective/Function: POSTURE: WFL. GAIT: reciprocal pattern. NEURO: intact. MMT: 4/5 LE. LUMBAR ROM: flex/ext min loss Goal 1:: I with HEP Goal Progress: Goal Met Goal 2:: Improve posture for ADLS' Goal Progress: Goal Met Goal 3:: Deccrease lumbar symptoms by 90% or > to improve function and QOL.(update goal) Goal Progress: Goal Met Goal 4:: Patient to improve lumbar ROM for function of recovery. Goal Progress: Goal Met Goal 5:: Patient to improve back owestry score by 5 points or > from this date to improve QOL. (update goal) Goal Progress: Goal Met Goal 6:: Patient will demonstrate the ability to ambulate 1/2 with no more than 5/10 pain in right low back. Goal Progress: Goal Met Plan: D/C Discharge Comments: HEP If there are questions or concerns regarding this patient's physical therapy, please feel free to call me at [phone]. Thank you for the referral of this patient. Sincerely, Puneet Pedraza, PT, Cert MDT, OCS
== END 2020-06-13 19:00 | disposition home or self-care (01) ==
LOC: PT 09:00
PROVIDERS: PCP Family Medicine Geriatric Medicine; Referring Provider Orthopaedic Surgery; Visit Provider Orthopaedic Surgery
DX: Z98.1 Arthrodesis status (principal)
CPT/HCPCS: 97110; 97162; 97530

== ENCOUNTER → 2020-07-25 09:29 | Outpatient (CLI) | payer MEDICARE, OTHER, SELFPAY ==
[2020-07-25 12:17] LABS: Absolute Lymphocyte Count 0.95 X10^3/uL (0.83-4.51); Absolute Neutrophil Count 3.8 X10^3/uL (2.0-7.7); Basophil# 0.02 X10^3/uL; Basophil% 0.4 % (0-1); Eosinophil# 0.07 X10^3/uL; Eosinophils% 1.3 % (0-5); Hematocrit 45.3 % (40-54); Hemoglobin 13.5 g/dL (13.0-16.5); Lymphocyte # 0.95 X10^3/ul (0.83-4.51); Mean Corp Hgb Conc 29.8 g/dL (32-36); Mean Corpuscular Hgb 22.3 pg (27.0-32.0); Mean Corpuscular Volume 74.8 fL (80-94); Mean Platelet Vol. 12.1 fl (6.2-12.0); Monocyte# 0.44 X10^3/uL; Monocyte% 8.3 % (0-10); NRBC Flagged by Analyzer 0 % (0-5); Neutrophil # 3.78 X10^3/uL (2.7-7.7); Neutrophil % 71.6 % (47-70); Platelet Count 185 K/mm3 (150-450); RBC Distribution Width CV 17.2 % (11.6-14.6); RBC Distribution Width SD 43.7 fl (35.1-43.9); Red Blood Count 6.06 M/mm3 (4.6-6.2); White Blood Count 5.3 K/mm3 (4.4-11.0)
[2020-07-25 12:31] LABS: Vitamin D,25 Hydroxy 68.1 ng/mL
[2020-07-25 12:47] LABS: ALB/GLOB Ratio 1.5 RATIO (0.9-2.4); AST(SGOT) 16 U/L (15-37); Alanine Aminotransfer ALT/SGPT 36 U/L (16-61); Alkaline Phosphatase 66 U/L (45-117); Anion Gap 5 (5-15); BUN 19 mg/dL (7-18); BUN/Creat Ratio 19.4 RATIO (10-20); Calcium,Total 8.8 mg/dL (8.5-10.1); Chloride 103 mmol/L (98-107); Creatinine, Serum 0.98 mg/dL (0.70-1.30); EST Glomerular Filtration Rate 79 mL/min (>60); Est Glom Filt Rate - Afr Amer 96 mL/min (>60); Globulin 2.7 g/dL (2.2-4.2); Glucose 243 mg/dL (74-106); Potassium 4.4 mmol/L (3.5-5.1); Protein, Total 6.7 g/dL (6.4-8.2); Sodium Level 137 mmol/L (136-145); Thyroid Stim Hormone (TSH) 2.84 uIU/mL (0.358-3.74)
== END ==
PROVIDERS: PCP Family Medicine Geriatric Medicine; Visit Provider Family Medicine Geriatric Medicine
DX: E11.9 Type 2 diabetes mellitus without complications (principal); E55.9 Vitamin D deficiency, unspecified; I10 Essential (primary) hypertension
CPT/HCPCS: 36415; 80053; 82306; 84443; 85025

== ENCOUNTER → 2020-08-15 16:40 | Outpatient (CLI) | payer MEDICARE, OTHER, SELFPAY | PROVIDERS: PCP Family Medicine Geriatric Medicine; Referring Provider Family Medicine Geriatric Medicine; Visit Provider Family Medicine Geriatric Medicine | DX: R06.89 Other abnormalities of breathing (principal) | CPT/HCPCS: 87635; C9803; U0002 ==

== ENCOUNTER → 2021-01-26 09:58 | Outpatient (CLI) | payer MEDICARE, OTHER, SELFPAY ==
[2021-01-26 10:50] LABS: Absolute Lymphocyte Count 1.11 X10^3/uL (0.83-4.51); Absolute Neutrophil Count 4.8 X10^3/uL (2.0-7.7); Basophil# 0.02 X10^3/uL; Basophil% 0.3 % (0-1); Eosinophil# 0.08 X10^3/uL; Eosinophils% 1.2 % (0-5); Hematocrit 49.6 % (40-54); Hemoglobin 16.7 g/dL (13.0-16.5); Lymphocyte # 1.11 X10^3/ul (0.83-4.51); Lymphocyte % 17.3 % (19-41); Mean Corp Hgb Conc 33.7 g/dL (32-36); Mean Corpuscular Hgb 30.1 pg (27.0-32.0); Mean Corpuscular Volume 89.4 fL (80-94); Mean Platelet Vol. 11.6 fl (6.2-12.0); Monocyte# 0.45 X10^3/uL; NRBC Flagged by Analyzer 0 % (0-5); Neutrophil # 4.75 X10^3/uL (2.7-7.7); Neutrophil % 73.9 % (47-70); Platelet Count 178 K/mm3 (150-450); RBC Distribution Width SD 45.5 fl (35.1-43.9); Red Blood Count 5.55 M/mm3 (4.6-6.2); White Blood Count 6.4 K/mm3 (4.4-11.0)
[2021-01-26 11:15] LABS: Vitamin D,25 Hydroxy 68.1 ng/mL
[2021-01-26 11:21] LABS: ALB/GLOB Ratio 1.2 RATIO (0.9-2.4); AST(SGOT) 22 U/L (15-37); Alanine Aminotransfer ALT/SGPT 54 U/L (16-61); Albumin, Serum 3.7 g/dL (3.2-5.0); Alkaline Phosphatase 80 U/L (45-117); Anion Gap 8 (5-15); BUN 21 mg/dL (7-18); BUN/Creat Ratio 17.9 RATIO (10-20); Calcium,Total 8.7 mg/dL (8.5-10.1); Chloride 101 mmol/L (98-107); Creatinine, Serum 1.17 mg/dL (0.70-1.30); EST Glomerular Filtration Rate 65 mL/min (>60); Est Glom Filt Rate - Afr Amer 78 mL/min (>60); Globulin 3.2 g/dL (2.2-4.2); Glucose 278 mg/dL (74-106); Potassium 4.2 mmol/L (3.5-5.1); Protein, Total 6.9 g/dL (6.4-8.2); Sodium Level 137 mmol/L (136-145); Thyroid Stim Hormone (TSH) 2.97 uIU/mL (0.358-3.74)
== END ==
PROVIDERS: PCP Family Medicine Geriatric Medicine; Visit Provider Family Medicine Geriatric Medicine
DX: I10 Essential (primary) hypertension (principal); E11.9 Type 2 diabetes mellitus without complications; E55.9 Vitamin D deficiency, unspecified
CPT/HCPCS: 36415; 80053; 82306; 84443; 85025

== ENCOUNTER → 2021-01-28 16:30 | Outpatient (CLI) | payer MEDICARE, OTHER, SELFPAY ==
[2021-01-28 18:47] LABS: CRP < 2.90 mg/L (0.0-3.0)
[2021-01-31 13:07] LABS: Endomysial Antibody IgA Negative (Negative)
[2021-01-31 19:52] LABS: Immunoglobulin A 62 mg/dL (61-437); t-Transglutaminase IgA <2 U/mL (0-3)
== END ==
PROVIDERS: PCP Family Medicine Geriatric Medicine; Referring Provider Internal Medicine Gastroenterology; Visit Provider Internal Medicine Gastroenterology
DX: R19.7 Diarrhea, unspecified (principal)
CPT/HCPCS: 36415; 82784; 83516; 86140; 86255

== ENCOUNTER → 2021-07-27 | Outpatient (CLI) | payer MEDICARE, OTHER, SELFPAY ==
[2021-07-27 12:22] LABS: Absolute Lymphocyte Count 0.97 X10^3/uL (0.83-4.51); Absolute Neutrophil Count 4.7 X10^3/uL (2.0-7.7); Basophil# 0.03 X10^3/uL; Basophil% 0.5 % (0-1); Eosinophil# 0.05 X10^3/uL; Eosinophils% 0.8 % (0-5); Hematocrit 51.5 % (40-54); Hemoglobin 17.7 g/dL (13.0-16.5); Lymphocyte # 0.97 X10^3/ul (0.83-4.51); Lymphocyte % 15.5 % (19-41); Mean Corp Hgb Conc 34.4 g/dL (32-36); Mean Corpuscular Hgb 31.6 pg (27.0-32.0); Mean Corpuscular Volume 91.8 fL (80-94); Mean Platelet Vol. 11.9 fl (6.2-12.0); Monocyte# 0.46 X10^3/uL; Monocyte% 7.3 % (0-10); NRBC Flagged by Analyzer 0 % (0-5); Neutrophil # 4.74 X10^3/uL (2.7-7.7); Neutrophil % 75.6 % (47-70); Platelet Count 174 K/mm3 (150-450); RBC Distribution Width CV 12.6 % (11.6-14.6); RBC Distribution Width SD 42.8 fl (35.1-43.9); Red Blood Count 5.61 M/mm3 (4.6-6.2); White Blood Count 6.3 K/mm3 (4.4-11.0)
[2021-07-27 12:48] LABS: Vitamin D,25 Hydroxy 64.9 ng/mL
[2021-07-27 13:06] LABS: ALB/GLOB Ratio 1.6 RATIO (0.9-2.4); AST(SGOT) 44 U/L (15-37); Alanine Aminotransfer ALT/SGPT 98 U/L (16-61); Albumin, Serum 4.1 g/dL (3.2-5.0); Alkaline Phosphatase 91 U/L (45-117); Anion Gap 8 (5-15); BUN 20 mg/dL (7-18); BUN/Creat Ratio 16.8 RATIO (10-20); Calcium,Total 8.6 mg/dL (8.5-10.1); Chloride 102 mmol/L (98-107); Creatinine, Serum 1.19 mg/dL (0.70-1.30); EST Glomerular Filtration Rate 63 mL/min (>60); Est Glom Filt Rate - Afr Amer 77 mL/min (>60); Globulin 2.6 g/dL (2.2-4.2); Glucose 341 mg/dL (74-106); Potassium 4.8 mmol/L (3.5-5.1); Protein, Total 6.7 g/dL (6.4-8.2); Sodium Level 136 mmol/L (136-145); Thyroid Stim Hormone (TSH) 2.47 uIU/mL (0.358-3.74)
== END | disposition home or self-care (01) ==
LOC: POLAB3 08:56
PROVIDERS: PCP Family Medicine Geriatric Medicine; Visit Provider Family Medicine Geriatric Medicine
DX: I10 Essential (primary) hypertension (principal); E11.9 Type 2 diabetes mellitus without complications; E55.9 Vitamin D deficiency, unspecified
CPT/HCPCS: 36415; 80053; 82306; 84443; 85025

== ENCOUNTER → 2021-07-28 | Outpatient (CLI) | payer MEDICARE, OTHER, SELFPAY ==
[2021-07-28 13:24] LABS: Hepatitis B Surface Antibody Non-Reactive; Hepatitis C Antibody Non-Reactive (Nonreactive)
[2021-07-29 09:56] LABS: Hepatitis A AB, Total Negative (Negative)
== END | disposition home or self-care (01) ==
LOC: POLAB3 10:27
PROVIDERS: PCP Family Medicine Geriatric Medicine; Visit Provider Family Medicine Geriatric Medicine
DX: R74.8 Abnormal levels of other serum enzymes (principal)
CPT/HCPCS: 36415; 86706; 86708; 86803

== ENCOUNTER → 2021-08-11 | Outpatient (CLI) | payer MEDICARE, OTHER, SELFPAY ==
--- NOTE | 2021-08-11 08:24 | US_ITS ---
STUDY: ABDOMINAL ULTRASOUND - RIGHT UPPER QUADRANT REASON FOR VISIT: Male, 76 years old ABN LEVELS OF SERUM ENZYMES TECHNIQUE: Ultrasound evaluation of the right upper quadrant was performed with real-time and static wallace-scale imaging. TECHNICAL QUALITY: Limited. Examination limited by bowel gas. COMPARISON: None. FINDINGS: Liver: The liver measures 15.6 cm. There is increased echogenicity consistent with fatty infiltration. The bile ducts are within normal limits. There is hepatic color flow. The direction of portal flow is hepatopetal. There is no demonstrated mass lesion. Gallbladder: Normal distended gallbladder. The gallbladder wall measures 2.5 cm mm. There is a negative sonographic Ralph''s sign. There is no pericholecystic fluid. There are no gallstones. Common Bile Duct (C.B.D.): The common bile duct measures 3.8 mm. Pancreas: There is nonvisualization of the pancreas due to overlying bowel gas. Right Kidney: Normal size of the right kidney. The right kidney measures 10.7 cm x 5.3 cm x 6.3 cm. The right cortex measures 1.9 cm. There is no demonstrated renal mass or cyst. There is no right hydronephrosis. US/Abdomen Limited IMPRESSION: Fatty infiltration of the liver. Electronically Signed: Alfredo Parker MD at 10:08 EDT ,
== END | disposition home or self-care (01) ==
LOC: US 08:20
PROVIDERS: PCP Family Medicine Geriatric Medicine; Referring Provider Family Medicine Geriatric Medicine; Visit Provider Family Medicine Geriatric Medicine
DX: R74.8 Abnormal levels of other serum enzymes (principal)
CPT/HCPCS: 76705

== ENCOUNTER → 2021-08-18 | Outpatient (CLI) | payer MEDICARE, OTHER, SELFPAY ==
--- NOTE | 2021-08-18 07:29 | US_ITS ---
STUDY: ABDOMINAL ULTRASOUND - ELASTOGRAPHY REASON FOR VISIT: Male, 76 years old. Fatty infiltration of the liver. TECHNIQUE: Liver stiffness measurements were obtained on a [employer] RS 85 ultrasound machine using a CA 1-7 probe following the SRU guidelines. 3 measurements were obtained using a 2-D-SWE method. The IQR/M was 26% suggesting a quality data set. TECHNICAL QUALITY: Adequate. COMPARISON: Comparison is made with prior study dated 08/11/2021. FINDINGS: Liver: Fatty infiltration of the liver. Median liver stiffness measured 6 kPa. US/Elastography Parenchyma/Organ IMPRESSION: Liver stiffness measures 6 kPa compatible with F2-F3 (Mild to moderate liver fibrosis) Metavir score. Electronically Signed: Alfredo Parker MD at 9:22 EDT ,
== END | disposition home or self-care (01) ==
LOC: US 07:28
PROVIDERS: PCP Family Medicine Geriatric Medicine; Visit Provider Family Medicine Geriatric Medicine
DX: K76.0 Fatty (change of) liver, not elsewhere classified (principal)
CPT/HCPCS: 76981

== ENCOUNTER → 2021-09-23 | Outpatient (CLI) | payer MEDICARE, OTHER, SELFPAY | END | disposition home or self-care (01) | LOC: PSN 09:25 | PROVIDERS: PCP Family Medicine Geriatric Medicine; Visit Provider Family Medicine Geriatric Medicine | DX: R68.83 Chills (without fever) (principal) | CPT/HCPCS: 87635; 87804; 87807; C9803; U0003; U0005 ==

== ENCOUNTER → 2021-10-21 | Outpatient (CLI) | payer MEDICARE, OTHER, SELFPAY | END | disposition home or self-care (01) | LOC: PSN 08:17 | PROVIDERS: PCP Family Medicine Geriatric Medicine; Referring Provider Nurse Practitioner Family; Visit Provider Nurse Practitioner Family | DX: R00.1 Bradycardia, unspecified (principal); I25.10 Atherosclerotic heart disease of native coronary artery without angina pectoris | CPT/HCPCS: 93225; 93226 ==

== ENCOUNTER → 2021-10-22 | Outpatient (CLI) | payer MEDICARE, OTHER, SELFPAY ==
[2021-10-22 10:45] LABS: International Normalized Ratio 0.9; Prothrombin Time (Protime)PT. 12.1 SECONDS (11.7-14.9)
[2021-10-22 10:50] LABS: Erythrocyte Sedimentation Rate < 1 mm/hr (0-20)
[2021-10-22 10:54] LABS: Absolute Lymphocyte Count 0.81 X10^3/uL (0.83-4.51); Absolute Neutrophil Count 5.8 X10^3/uL (2.0-7.7); Basophil# 0.02 X10^3/uL; Basophil% 0.3 % (0-1); Eosinophil# 0.08 X10^3/uL; Eosinophils% 1.1 % (0-5); Hematocrit 48.7 % (40-54); Hemoglobin 16.9 g/dL (13.0-16.5); Lymphocyte # 0.81 X10^3/ul (0.83-4.51); Lymphocyte % 11.3 % (19-41); Mean Corp Hgb Conc 34.7 g/dL (32-36); Mean Corpuscular Hgb 31.8 pg (27.0-32.0); Mean Corpuscular Volume 91.7 fL (80-94); Mean Platelet Vol. 10.7 fl (6.2-12.0); Monocyte# 0.45 X10^3/uL; Monocyte% 6.3 % (0-10); NRBC Flagged by Analyzer 0 % (0-5); Neutrophil % 80.4 % (47-70); Platelet Count 135 K/mm3 (150-450); RBC Distribution Width CV 12.4 % (11.6-14.6); RBC Distribution Width SD 42.3 fl (35.1-43.9); Red Blood Count 5.31 M/mm3 (4.6-6.2); White Blood Count 7.2 K/mm3 (4.4-11.0)
[2021-10-22 11:10] LABS: ALB/GLOB Ratio 1.3 RATIO (0.9-2.4); AST(SGOT) 38 U/L (15-37); Alanine Aminotransfer ALT/SGPT 126 U/L (16-61); Albumin, Serum 3.7 g/dL (3.2-5.0); Alkaline Phosphatase 103 U/L (45-117); Anion Gap 6 (5-15); BUN 14 mg/dL (7-18); BUN/Creat Ratio 15.5 RATIO (10-20); CRP < 2.90 mg/L (0.0-3.0); Calcium,Total 8.8 mg/dL (8.5-10.1); Chloride 103 mmol/L (98-107); EST Glomerular Filtration Rate 87 mL/min (>60); Est Glom Filt Rate - Afr Amer 105 mL/min (>60); Ferritin 193 ng/mL (26-388); Globulin 2.9 g/dL (2.2-4.2); Glucose 305 mg/dL (74-106); LDH 194 U/L (87-241); Potassium 4.2 mmol/L (3.5-5.1); Protein, Total 6.6 g/dL (6.4-8.2); Sodium Level 137 mmol/L (136-145)
[2021-10-23 14:09] LABS: Anti-Centromere B Ab <0.2 AI (0.0-0.9); Anti-Chromatin <0.2 AI (0.0-0.9); Anti-Jo <0.2 AI (0.0-0.9); Anti-Scleroderma-70 AB <0.2 AI (0.0-0.9); RNP Ab <0.2 AI (0.0-0.9); SJOGREN'S Anti-SS-A test < 0.2 AI (0.0-0.9); SJOGREN'S Anti-SS-B test < 0.2 AI (0.0-0.9); Smith Ab <0.2 AI (0.0-0.9)
[2021-10-23 16:19] LABS: Anti-Mitochondrial AB <20.0 Units (0.0-20.0); Anti-dsDNA Ab <1 IU/mL (0-9)
[2021-10-24 06:08] LABS: Angiotensin Convert Enzyme < 15 U/L (14-82); Cytoplasmic Ab (C-ANCA) <1:20 titer (Neg:<1:20)
[2021-10-26 10:50] LABS: AFP, Tumor Marker 3.1 ng/mL (0.0-8.4); Anti-Smooth Muscle ABS 6 Units (0-19); Copper, Serum or Plasma 83 ug/dL (69-132); Haptoglobin 106 mg/dL (34-355); Perinuclear Ab (P-ANCA) <1:20 titer (Neg:<1:20)
== END | disposition home or self-care (01) ==
LOC: LAB 10:16
PROVIDERS: PCP Family Medicine Geriatric Medicine; Visit Provider Nurse Practitioner Adult Health
DX: K74.00 Hepatic fibrosis, unspecified (principal); I49.1 Atrial premature depolarization
CPT/HCPCS: 36415; 80053; 82105; 82140; 82164; 82390; 82525; 82728; 83010; 83516; 83615; 85025; 85610; 85652; 86140; 86225; 86235; 86256

== ENCOUNTER → 2021-11-09 | Outpatient (CLI) | payer MEDICARE, OTHER, SELFPAY ==
[2021-11-09 13:57] LABS: Absolute Lymphocyte Count 1.08 X10^3/uL (0.83-4.51); Absolute Neutrophil Count 5.9 X10^3/uL (2.0-7.7); Basophil# 0.02 X10^3/uL; Basophil% 0.3 % (0-1); Eosinophil# 0.06 X10^3/uL; Eosinophils% 0.8 % (0-5); Hematocrit 47.8 % (40-54); Hemoglobin 16.4 g/dL (13.0-16.5); Lymphocyte # 1.08 X10^3/ul (0.83-4.51); Lymphocyte % 13.9 % (19-41); Mean Corp Hgb Conc 34.3 g/dL (32-36); Mean Corpuscular Hgb 32.1 pg (27.0-32.0); Mean Corpuscular Volume 93.5 fL (80-94); Mean Platelet Vol. 11.1 fl (6.2-12.0); Monocyte# 0.62 X10^3/uL; NRBC Flagged by Analyzer 0 % (0-5); Neutrophil # 5.93 X10^3/uL (2.7-7.7); Neutrophil % 76.5 % (47-70); Platelet Count 197 K/mm3 (150-450); RBC Distribution Width CV 12.6 % (11.6-14.6); RBC Distribution Width SD 43.4 fl (35.1-43.9); Red Blood Count 5.11 M/mm3 (4.6-6.2); White Blood Count 7.8 K/mm3 (4.4-11.0)
[2021-11-09 14:26] LABS: Vitamin D,25 Hydroxy 73.4 ng/mL
[2021-11-09 14:34] LABS: ALB/GLOB Ratio 1.4 RATIO (0.9-2.4); AST(SGOT) 20 U/L (15-37); Alanine Aminotransfer ALT/SGPT 69 U/L (16-61); Albumin, Serum 3.8 g/dL (3.2-5.0); Alkaline Phosphatase 71 U/L (45-117); Anion Gap 5 (5-15); BUN 17 mg/dL (7-18); BUN/Creat Ratio 19.2 RATIO (10-20); Chloride 107 mmol/L (98-107); Creatinine, Serum 0.89 mg/dL (0.70-1.30); EST Glomerular Filtration Rate 89 mL/min (>60); Est Glom Filt Rate - Afr Amer 108 mL/min (>60); Globulin 2.8 g/dL (2.2-4.2); Glucose 129 mg/dL (74-106); Potassium 4.3 mmol/L (3.5-5.1); Protein, Total 6.6 g/dL (6.4-8.2); Sodium Level 140 mmol/L (136-145); Thyroid Stim Hormone (TSH) 1.96 uIU/mL (0.358-3.74)
== END | disposition home or self-care (01) ==
LOC: LAB 12:07
PROVIDERS: PCP Family Medicine Geriatric Medicine; Referring Provider Family Medicine Geriatric Medicine; Visit Provider Family Medicine Geriatric Medicine
DX: E11.9 Type 2 diabetes mellitus without complications (principal); E55.9 Vitamin D deficiency, unspecified; I10 Essential (primary) hypertension
CPT/HCPCS: 36415; 80053; 82306; 84443; 85025

== ENCOUNTER → 2022-02-08 | Outpatient (CLI) | payer MEDICARE, OTHER, SELFPAY ==
[2022-02-08 18:23] LABS: Absolute Lymphocyte Count 1.08 X10^3/uL (0.83-4.51); Absolute Neutrophil Count 5.7 X10^3/uL (2.0-7.7); Basophil# 0.02 X10^3/uL; Basophil% 0.3 % (0-1); Eosinophil# 0.05 X10^3/uL; Eosinophils% 0.7 % (0-5); Hematocrit 52.1 % (40-54); Hemoglobin 17.3 g/dL (13.0-16.5); Lymphocyte # 1.08 X10^3/ul (0.83-4.51); Lymphocyte % 14.9 % (19-41); Mean Corp Hgb Conc 33.2 g/dL (32-36); Mean Corpuscular Hgb 31.5 pg (27.0-32.0); Mean Corpuscular Volume 94.7 fL (80-94); Mean Platelet Vol. 11.8 fl (6.2-12.0); Monocyte# 0.43 X10^3/uL; Monocyte% 5.9 % (0-10); NRBC Flagged by Analyzer 0 % (0-5); Neutrophil # 5.65 X10^3/uL (2.7-7.7); Neutrophil % 77.9 % (47-70); Platelet Count 169 K/mm3 (150-450); RBC Distribution Width CV 11.9 % (11.6-14.6); RBC Distribution Width SD 41.2 fl (35.1-43.9); White Blood Count 7.3 K/mm3 (4.4-11.0)
[2022-02-08 18:43] LABS: ALB/GLOB Ratio 1.4 RATIO (0.9-2.4); AST(SGOT) 37 U/L (15-37); Alanine Aminotransfer ALT/SGPT 100 U/L (16-61); Albumin, Serum 3.8 g/dL (3.2-5.0); Alkaline Phosphatase 71 U/L (45-117); Anion Gap 7 (5-15); BUN 16 mg/dL (7-18); Calcium,Total 9.3 mg/dL (8.5-10.1); Chloride 105 mmol/L (98-107); Creatinine, Serum 0.94 mg/dL (0.70-1.30); EST Glomerular Filtration Rate 83 mL/min (>60); Est Glom Filt Rate - Afr Amer 101 mL/min (>60); Globulin 2.7 g/dL (2.2-4.2); Glucose 111 mg/dL (74-106); Potassium 3.8 mmol/L (3.5-5.1); Protein, Total 6.5 g/dL (6.4-8.2); Sodium Level 144 mmol/L (136-145); Thyroid Stim Hormone (TSH) 2.18 uIU/mL (0.358-3.74)
== END | disposition home or self-care (01) ==
LOC: POLAB3 14:20
PROVIDERS: PCP Family Medicine Geriatric Medicine; Visit Provider Family Medicine Geriatric Medicine
DX: E55.9 Vitamin D deficiency, unspecified (principal); E11.9 Type 2 diabetes mellitus without complications; I10 Essential (primary) hypertension
CPT/HCPCS: 36415; 80053; 82306; 84443; 85025

== ENCOUNTER → 2022-05-10 | Outpatient (CLI) | payer MEDICARE, OTHER, SELFPAY ==
[2022-05-10 13:16] LABS: Absolute Lymphocyte Count 1.17 X10^3/uL (0.83-4.51); Absolute Neutrophil Count 5.8 X10^3/uL (2.0-7.7); Basophil# 0.02 X10^3/uL; Basophil% 0.3 % (0-1); Eosinophil# 0.05 X10^3/uL; Eosinophils% 0.7 % (0-5); Hematocrit 52.2 % (40-54); Lymphocyte # 1.17 X10^3/ul (0.83-4.51); Lymphocyte % 15.5 % (19-41); Mean Corp Hgb Conc 34.5 g/dL (32-36); Mean Corpuscular Volume 92.9 fL (80-94); Mean Platelet Vol. 12.1 fl (6.2-12.0); Monocyte% 6.6 % (0-10); NRBC Flagged by Analyzer 0 % (0-5); Neutrophil # 5.78 X10^3/uL (2.7-7.7); Neutrophil % 76.6 % (47-70); Platelet Count 169 K/mm3 (150-450); RBC Distribution Width CV 12.5 % (11.6-14.6); RBC Distribution Width SD 42.6 fl (35.1-43.9); Red Blood Count 5.62 M/mm3 (4.6-6.2); White Blood Count 7.5 K/mm3 (4.4-11.0)
[2022-05-10 13:34] LABS: Vitamin D,25 Hydroxy 55.2 ng/mL
[2022-05-10 13:45] LABS: ALB/GLOB Ratio 1.2 RATIO (0.9-2.4); AST(SGOT) 26 U/L (15-37); Alanine Aminotransfer ALT/SGPT 54 U/L (16-61); Albumin, Serum 3.9 g/dL (3.2-5.0); Alkaline Phosphatase 72 U/L (45-117); Anion Gap 9 (5-15); BUN 15 mg/dL (7-18); BUN/Creat Ratio 12.8 RATIO (10-20); Chloride 105 mmol/L (98-107); Creatinine, Serum 1.17 mg/dL (0.70-1.30); EST Glomerular Filtration Rate 64 mL/min (>60); Est Glom Filt Rate - Afr Amer 78 mL/min (>60); Globulin 3.2 g/dL (2.2-4.2); Glucose 258 mg/dL (74-106); Potassium 4.4 mmol/L (3.5-5.1); Protein, Total 7.1 g/dL (6.4-8.2); Sodium Level 140 mmol/L (136-145); Thyroid Stim Hormone (TSH) 2.56 uIU/mL (0.358-3.74)
[2022-05-11 13:13] LABS: Pathologist Review Reviewed
== END | disposition home or self-care (01) ==
LOC: POLAB3 09:22
PROVIDERS: PCP Family Medicine Geriatric Medicine; Visit Provider Family Medicine Geriatric Medicine
DX: E55.9 Vitamin D deficiency, unspecified (principal); E11.65 Type 2 diabetes mellitus with hyperglycemia; I10 Essential (primary) hypertension
CPT/HCPCS: 36415; 80053; 82306; 84443; 85025

== ENCOUNTER → 2022-05-11 | Outpatient (CLI) | payer MEDICARE, OTHER, SELFPAY ==
[2022-05-11 13:12] LABS: Absolute Lymphocyte Count 0.88 X10^3/uL (0.83-4.51); Absolute Neutrophil Count 4.3 X10^3/uL (2.0-7.7); Basophil# 0.01 X10^3/uL; Basophil% 0.2 % (0-1); Eosinophil# 0.06 X10^3/uL; Eosinophils% 1.1 % (0-5); Hematocrit 48.5 % (40-54); Hemoglobin 16.7 g/dL (13.0-16.5); Lymphocyte # 0.88 X10^3/ul (0.83-4.51); Lymphocyte % 15.6 % (19-41); Mean Corp Hgb Conc 34.4 g/dL (32-36); Mean Corpuscular Hgb 31.7 pg (27.0-32.0); Mean Corpuscular Volume 92.2 fL (80-94); Monocyte# 0.39 X10^3/uL; Monocyte% 6.9 % (0-10); NRBC Flagged by Analyzer 0 % (0-5); Neutrophil # 4.29 X10^3/uL (2.7-7.7); Platelet Count 151 K/mm3 (150-450); RBC Distribution Width CV 12.6 % (11.6-14.6); RBC Distribution Width SD 42.6 fl (35.1-43.9); Red Blood Count 5.26 M/mm3 (4.6-6.2); White Blood Count 5.6 K/mm3 (4.4-11.0)
== END | disposition home or self-care (01) ==
LOC: POLAB3 09:40
PROVIDERS: PCP Family Medicine Geriatric Medicine; Visit Provider Family Medicine Geriatric Medicine
DX: D75.1 Secondary polycythemia (principal)
CPT/HCPCS: 36415; 85025

== ENCOUNTER → 2022-05-20 | Outpatient (CLI) | payer MEDICARE, OTHER, SELFPAY ==
--- NOTE | 2022-05-20 10:26 | STRESSREP_ITS ---
Stress Test Report Date: 05-20-2022 Procedure: Exercise tolerance test/imaging study Indications: Fatigue; CAD; CABG; hyperlipidemia; hyper tension Consent: Per the patient Procedure: The patient exercised on a Naresh protocol for 7 minutes and 30 seconds completing Stage II and 1 minute and 30 seconds of Stage III achieving a peak heart rate of 126 bpm (87% predicted maximal heart rate) with resting blood pressure of 128/72 mmHg and a peak blood pressure 162/68 mmHg and a peak MET capacity of 10 METs. The baseline ECG demonstrated normal sinus rhythm; poor R wave progression. The peak exercise ECG demonstrated no obvious ECG change. There was an occasional PAC/PVC pretest, an occasional PAC during exercise, and an occasional PAC/PVC in recovery. The functional capacity was considered good. There was no complaint of chest discomfort during exercise or recovery. The examination was discontinued secondary to dyspnea. Impression: 1. Technically adequate (percent predicted maximal heart rate greater than 85%) exercise tolerance test 2. Peak exercise ECG with no obvious ECG change 3. There was an occasional PAC/PVC pretest, and occasional PAC during exercise, and an occasional PAC/PVC in recovery 4. Nuclear images pending Myocardial perfusion imaging study: Technique: The patient was injected with 12.0 mCi of technetium 99m Cardiolite and subsequently rest SPECT Cardiolite nuclear imaging was obtained in the horizontal long, vertical long, and short axis views. The patient exercised on a Naresh protocol for 7 minutes and 30 seconds completing Stage II and 1 minute and 30 seconds of Stage III achieving a peak heart rate of 126 bpm (87% predicted maximal heart rate) with resting blood pressure of 128/72 mmHg and a peak blood pressure 162/68 mmHg and a peak MET capacity of 10 METs. The patient was injected with 35.1 mCi of technetium 99m Cardiolite and subsequently stress SPECT Cardiolite nuclear imaging was obtained in the horizontal long, vertical long, and short axis views. A gated Cardiolite study at peak stress was not obtained. Interpretation: Rest and stress SPECT Cardiolite nuclear imaging status post realignment, normalization, and attenuation correction, demonstrates relative uniform tracer uptake and myocardial perfusion appearing within normal limits. Impression: 1. Rest and stress SPECT Cardiolite nuclear imaging demonstrate relative uniform tracer uptake and myocardial perfusion appearing within normal limits. 2. The gated Cardiolite study at peak stress was not obtained. This note was generated with [employer] software. It may contain incorrect words, spelling, and punctuation that were not noted in checking the note before signing.
== END | disposition home or self-care (01) ==
LOC: CVS 06:35
PROVIDERS: PCP Family Medicine Geriatric Medicine; Visit Provider Nurse Practitioner Gerontology
DX: I25.10 Atherosclerotic heart disease of native coronary artery without angina pectoris (principal); R53.83 Other fatigue
CPT/HCPCS: 78452; 93017; A9500; A4216

== ENCOUNTER → 2022-08-02 | Outpatient (CLI) | payer MEDICARE, OTHER, SELFPAY ==
[2022-08-02 13:03] LABS: Absolute Lymphocyte Count 0.96 X10^3/uL (0.83-4.51); Absolute Neutrophil Count 4.9 X10^3/uL (2.0-7.7); Basophil# 0.03 X10^3/uL; Basophil% 0.5 % (0-1); Eosinophil# 0.05 X10^3/uL; Eosinophils% 0.8 % (0-5); Hematocrit 50.1 % (40-54); Hemoglobin 17.4 g/dL (13.0-16.5); Lymphocyte # 0.96 X10^3/ul (0.83-4.51); Mean Corp Hgb Conc 34.7 g/dL (32-36); Mean Corpuscular Volume 92.3 fL (80-94); Mean Platelet Vol. 11.9 fl (6.2-12.0); Monocyte# 0.42 X10^3/uL; Monocyte% 6.6 % (0-10); NRBC Flagged by Analyzer 0 % (0-5); Neutrophil # 4.91 X10^3/uL (2.7-7.7); Neutrophil % 76.8 % (47-70); Platelet Count 158 K/mm3 (150-450); RBC Distribution Width CV 12.6 % (11.6-14.6); RBC Distribution Width SD 42.4 fl (35.1-43.9); Red Blood Count 5.43 M/mm3 (4.6-6.2); White Blood Count 6.4 K/mm3 (4.4-11.0)
[2022-08-02 17:16] LABS: ALB/GLOB Ratio 1.3 RATIO (0.9-2.4); AST(SGOT) 31 U/L (15-37); Alanine Aminotransfer ALT/SGPT 74 U/L (16-61); Albumin, Serum 3.9 g/dL (3.2-5.0); Alkaline Phosphatase 83 U/L (45-117); Anion Gap 9 (5-15); BUN 25 mg/dL (7-18); BUN/Creat Ratio 24.8 RATIO (10-20); Calcium,Total 8.9 mg/dL (8.5-10.1); Chloride 108 mmol/L (98-107); Creatinine, Serum 1.01 mg/dL (0.70-1.30); EST Glomerular Filtration Rate 76 mL/min (>60); Est Glom Filt Rate - Afr Amer 92 mL/min (>60); Globulin 2.9 g/dL (2.2-4.2); Glucose 269 mg/dL (74-106); Potassium 4.5 mmol/L (3.5-5.1); Protein, Total 6.8 g/dL (6.4-8.2); Sodium Level 142 mmol/L (136-145); Thyroid Stim Hormone (TSH) 1.86 uIU/mL (0.358-3.74)
== END | disposition home or self-care (01) ==
LOC: POLAB3 09:52
PROVIDERS: PCP Family Medicine Geriatric Medicine; Visit Provider Family Medicine Geriatric Medicine
DX: E11.65 Type 2 diabetes mellitus with hyperglycemia (principal); I10 Essential (primary) hypertension; E55.9 Vitamin D deficiency, unspecified
CPT/HCPCS: 36415; 80053; 82306; 84443; 85025

== ENCOUNTER → 2022-10-13 | Outpatient (CLI) | payer MEDICARE, OTHER, SELFPAY ==
[2022-10-13 15:41] LABS: Hematocrit 48.9 % (40-54); Hemoglobin 16.9 g/dL (13.0-16.5); Mean Corp Hgb Conc 34.6 g/dL (32-36); Mean Corpuscular Hgb 32.7 pg (27.0-32.0); Mean Corpuscular Volume 94.6 fL (80-94); Mean Platelet Vol. 11.8 fl (6.2-12.0); Platelet Count 164 K/mm3 (150-450); RBC Distribution Width SD 45.1 fl (35.1-43.9); Red Blood Count 5.17 M/mm3 (4.6-6.2); White Blood Count 7.9 K/mm3 (4.4-11.0)
[2022-10-13 16:26] LABS: Erythrocyte Sedimentation Rate < 1 mm/hr (0-20)
[2022-10-13 16:29] LABS: CRP < 2.90 mg/L (0.0-3.0)
== END | disposition home or self-care (01) ==
LOC: LAB 13:59
PROVIDERS: PCP Family Medicine Geriatric Medicine; Visit Provider Ophthalmology
DX: H49.11 Fourth [trochlear] nerve palsy, right eye (principal)
CPT/HCPCS: 36415; 85027; 85652; 86140

== ENCOUNTER → 2023-01-20 | Outpatient (CLI) | payer MEDICARE, OTHER, SELFPAY ==
[2023-01-20 17:57] LABS: M R Staph aureus DNA By PCR Negative (Negative); Probe Check PASS; Specimen Processing Control PASS; Staph aureus DNA By PCR NEGATIVE (Negative)
== END | disposition home or self-care (01) ==
LOC: POLAB3 15:48 → LABSPEC 15:49
PROVIDERS: PCP Family Medicine Geriatric Medicine; Visit Provider Family Medicine Geriatric Medicine
DX: L03.115 Cellulitis of right lower limb (principal)
CPT/HCPCS: 87070; 87205; 87640

== ENCOUNTER → 2023-01-31 | Outpatient (CLI) | payer MEDICARE, OTHER, SELFPAY ==
[2023-01-31 11:24] LABS: Absolute Lymphocyte Count 1.01 X10^3/uL (0.83-4.51); Absolute Neutrophil Count 4.3 X10^3/uL (2.0-7.7); Basophil# 0.03 X10^3/uL; Basophil% 0.5 % (0-1); Eosinophil# 0.05 X10^3/uL; Eosinophils% 0.9 % (0-5); Hematocrit 51.2 % (40-54); Hemoglobin 16.8 g/dL (13.0-16.5); Lymphocyte # 1.01 X10^3/ul (0.83-4.51); Lymphocyte % 17.4 % (19-41); Mean Corp Hgb Conc 32.8 g/dL (32-36); Mean Corpuscular Hgb 30.8 pg (27.0-32.0); Mean Corpuscular Volume 93.9 fL (80-94); Mean Platelet Vol. 11.6 fl (6.2-12.0); Monocyte% 6.9 % (0-10); NRBC Flagged by Analyzer 0 % (0-5); Neutrophil # 4.32 X10^3/uL (2.7-7.7); Neutrophil % 74.1 % (47-70); Platelet Count 149 K/mm3 (150-450); RBC Distribution Width CV 12.5 % (11.6-14.6); RBC Distribution Width SD 42.9 fl (35.1-43.9); Red Blood Count 5.45 M/mm3 (4.6-6.2); White Blood Count 5.8 K/mm3 (4.4-11.0)
[2023-01-31 11:38] LABS: Vitamin D,25 Hydroxy 70.4 ng/mL
[2023-01-31 11:47] LABS: ALB/GLOB Ratio 1.6 RATIO (0.9-2.4); AST(SGOT) 20 U/L (15-37); Alanine Aminotransfer ALT/SGPT 53 U/L (16-61); Albumin, Serum 3.9 g/dL (3.2-5.0); Alkaline Phosphatase 68 U/L (45-117); Anion Gap 5 (5-15); BUN 19 mg/dL (7-18); BUN/Creat Ratio 21.2 RATIO (10-20); Calcium,Total 8.3 mg/dL (8.5-10.1); Chloride 106 mmol/L (98-107); EST Glomerular Filtration Rate 87 mL/min (>60); Est Glom Filt Rate - Afr Amer 106 mL/min (>60); Globulin 2.5 g/dL (2.2-4.2); Glucose 213 mg/dL (74-106); Potassium 4.4 mmol/L (3.5-5.1); Protein, Total 6.4 g/dL (6.4-8.2); Sodium Level 140 mmol/L (136-145); Thyroid Stim Hormone (TSH) 1.66 uIU/mL (0.358-3.74)
== END | disposition home or self-care (01) ==
LOC: POLAB3 10:01
PROVIDERS: PCP Family Medicine Geriatric Medicine; Visit Provider Family Medicine Geriatric Medicine
DX: E11.65 Type 2 diabetes mellitus with hyperglycemia (principal); I10 Essential (primary) hypertension; E55.9 Vitamin D deficiency, unspecified
CPT/HCPCS: 36415; 80053; 82306; 84443; 85025

== ENCOUNTER 2023-02-02 13:45 | Outpatient (RCR) | payer MEDICARE, OTHER, SELFPAY ==
[2023-01-26 10:32] VITALS: BP 150/75; PULSE 61; RESP 18; TEMP 35.8
--- NOTE | 2023-01-26 11:19 | HP.PCM_ITS ---
History of Present Illness Date of Service: 01/26/23 Chief Complaint: Right leg ulceration History of Wound: Traumatic leg ulceration Progress of Wound: Mr. Ralph is a 77-year-old diabetic male presenting to the wound care center today at [facility] for follow-up and evaluation of full- thickness ulceration to the right anterior leg after falling from a ladder. Patient is a diabetic is on diabetic medication and is well controlled. His last A1c was 6.8%. He presented to the [place] where he was placed on 2 antibiotics doxycycline and ciprofloxacin. Treatment has been unremarkable with antibiotics. He has been doing home dressing changes. He denies any new onset of trauma except stated above. Denies constitutional symptoms. No other pedal complaints at this time. 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) Hyperlipidemia Liver fibrosis Nonalcoholic fatty liver disease Nonrheumatic aortic (valve) stenosis PAC (premature atrial contraction) Preop cardiovascular exam Segmental and somatic dysfunction of lumbar region Segmental and somatic dysfunction of pelvic region Segmental and somatic dysfunction of sacral region Type 2 diabetes mellitus without complication Vitamin D deficiency Home Medications lisinopril 10 mg tablet 10 mg PO DAILY 03/20/13 [History Last Taken 03/19/13 10:00] rosuvastatin 20 mg tablet 20 mg PO DAILY 03/20/13 [History Last Taken 03/19/13 22:00] cholecalciferol (vitamin D3) 25 mcg (1,000 unit) capsule 3,000 unit PO QDAY 05/17/19 [History Last Taken Unknown] esomeprazole magnesium 40 mg capsule,delayed release (Nexium) 40 mg PO DAILY 05/17/19 [History Last Taken Unknown] ezetimibe 10 mg tablet 10 mg PO DAILY 05/17/19 [History Last Taken Unknown] fluticasone propionate 50 mcg/actuation nasal spray,suspension 1 spray intranasal DAILY 05/22/20 [History Last Taken Unknown] ascorbic acid (vitamin C) 250 mg tablet 250 mg PO DAILY 11/10/20 [History Last Taken Unknown] diclofenac sodium 1 % topical gel 2 g topical ONCE 11/10/20 [History Last Taken 01/25/23] empagliflozin 25 mg tablet (Jardiance) 25 mg PO QAM 05/11/21 [History Last Taken Unknown] aspirin 81 mg chewable tablet 81 mg PO .QODAY 11/20/21 [History Last Taken Unknown] semaglutide 1 mg/dose (2 mg/1.5 mL) subcutaneous pen injector (Ozempic) 1 mg subcut QWEEK 11/20/21 [History Last Taken Unknown] cyanocobalamin (vitamin B-12) 1,000 mcg tablet 1,000 mcg PO DAILY 07/15/22 [History Last Taken Unknown] atenolol 25 mg tablet 25 mg PO BID #180 tabs 07/20/22 [Rx Last Taken Unknown] ferrous sulfate 01/26/23 [History Last Taken Unknown] Allergy/AdvReac Type Severity Reaction Status Date / Time No Known Allergies Allergy Verified 01/26/23 10:49 Family History Brother Diabetes Myocardial infarction Father Diabetes Heart disease Surgical History History of carpal tunnel repair 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 CFT is brisk. Skin temperature is warm to warm from proximal ankle to distal digits. Nonpitting edema appreciated to right lower extremity. Neurological: Light touch is intact. Patient response to painful stimuli. Protective sensation is intact. Dermatological: Evidence of longitudinal sanguinous crust appreciated to the proximal leg on the anterior aspect along the tibia. No evidence of erythema or proximal streaking or sign of infection. No drainage. No probe to bone. Excisional debridement down to and including subcutaneous tissue of the sanguinous crust to the anterior aspect of the right leg. Predebridement measurement is sanguinous crust. Postdebridement measurement is 5.2 x 0.4 x 0.2 cm. Wound base is granular nature with sanguinous drainage. No probe to bone after debridement. Musculoskeletal: Strength 5 and 5 in all quadrants bilateral. Cavus foot form is appreciated. No pain to the full-thickness ulceration to the right leg. No pain with calf pressure. Debridement Note Debridement Note Debridement Free Text: Excisional debridement down to and including subcutaneous tissue of the sanguinous crust to the anterior aspect of the right leg. Predebridement measurement is sanguinous crust. Postdebridement measurement is 5.2 x 0.4 x 0.2 cm. Wound base is granular nature with sanguinous drainage. No probe to bone after debridement. Post-Debridement Measurements and Additional Note: Post-Debridement Measurements/Treatment - Nurse 1 - General Ulcer Assessment Start: 01/26/23 10:29 Freq: Status: Active Protocol: KEISHA Activity Type Activity Date Activity User E-sign Co-sign Detail Recorded Client Recorded Date Recorded By Document 01/26/23 10:32 DL Desktop 01/26/23 10:48 DL 01/26/23 10:32 - Today's Visit Information Type of service Initial Visit Arrival Mode Ambulatory Transfer Assistance None Patient Identification Verified (Name & Yes ) Patient Requires Transmission-Based No Precautions Vital Signs Temperature (97.8 F-99.1 F) 96.5 F L Temperature Source Temporal Pulse Rate (60-100) 61 Pulse Location Monitor Respiratory Rate (12-18) 18 Respiratory rate source Observation Blood Pressure (90/60-120/80) 150/75 H Blood Pressure Mean 100 Source Monitor History Since Last Visit- (Skip if this is Patient's initial visit) Have you changed medications since your No last visit? Any new allergies or adverse reactions No Had a fall/change in ADL's that may No increase risk of falls Signs or symptoms of abuse and/or No neglect since last visit Have you been in the hospital since your No last visit? Has dressing in place as prescribed Yes Has compression in place as prescribed N/A Has offloadiing in place as prescribed Yes Experienced any changes in pain level or No management Pain Scale: 0-10 Numeric Is Patient Pain Free? Yes Lower Extremity Assessment/ Foot Assessment/ Toe Nail Assessment Left -Posterior Tibial Palpable Yes -Dorsalis Pedis Palpable Yes -Hair Growth on Legs No -Hair Growth on Toes No -Temperature of Extremity Warm -Capillary Refill Greater than 3 Seconds -Dependent Rubor No -Blanched when Elevated No -Lipodermatosclerosis No -Other Deformity No -Prior Foot Ulcer No -Charcot Joint No -Prior Amputation No -Thick No -Discolored No -Deformed No -Improper Length & Hygeine No Right -Posterior Tibial Palpable Yes -Dorsalis Pedis Palpable Yes -Hair Growth on Legs No -Hair Growth on Toes No -Temperature of Extremity Warm -Capillary Refill Greater than 3 Seconds -Dependent Rubor No -Blanched when Elevated No -Other Deformity No -Prior Foot Ulcer No -Charcot Joint No -Prior Amputation No -Thick No -Discolored No -Deformed No -Improper Length & Hygeine No Communication Assessment Preferred language Tristanian Able to Read Yes Able to Write Yes Right Hearing Abillity Normal Left Hearing Abillity Normal Visual Assistive Devices Glasses Teaching Assessment Preferences Verbal,Written, Demonstration Barriers to Learning None Readiness To Learn Good Willingness to Engage in Self Management Med Activies Readiness to Engage in Self Management Med Activities Anxiety Level Calm Cooperation Cooperative Perception Coherent Interest in Health Problem Asks Questions Education Importance Acknowledges Need Does Patient Smoke tobacco or other No substances Smoking Status Former smoker Is Patient Diabetic Yes Functional Assessment Recent Decline in Ability to Perform Denies Any Declines Teaching: Wound Center Dressing Your Wound -Person Taught Patient *Welcome to the Wound Center -Person Taught Patient WC - Nurse 1 - General Ulcer Measurement Start: 01/26/23 10:29 Freq: Status: Active Protocol: Activity Type Activity Date Activity User E-sign Co-sign Detail Recorded Client Recorded Date Recorded By Document 01/26/23 10:32 DL Desktop 01/26/23 10:48 DL 01/26/23 10:32 Wound Center Nurse 1 #1 R Osorio -Current Size (cm) - Length 5.5 -Current Size (cm) - Width 0.4 -Current Size (cm) - Depth 0.2 -Total Square Cm 2.20 -Photo Taken Yes -Exudate Amt Small -Exudate Type Serosanguineous -Wound Margin Distinct, Outline Attached -Granulation Amt Small (1-33%) -Granulation Quality Scribner -Necrosis Amt Large (67-100%) -Necrotic Tissue Type Adherent Slough -Structure Exposed N/A -Texture (Lauren-wound Skin Appearance) Scarring -Moisture (Lauren-wound Skin Appearance) No Abnormality -Color (Lauren-wound Skin Appearance) No Abnormality -Temperature (Lauren-wound Skin No Abnormality Appearance) (Pt Warm) -Tenderness on Palpation (Lauren-wound No Skin Appearance) -Ulcer Cleansing Soap and Water -Foul Odor after Cleansing No -Anesthetic Used 5% Lidocaine Gel Right Calf (cm) 31.5 Right Ankle (cm) 19.6 Left Calf (cm) 33 Left Ankle (cm) 19.6 WC - Nurse 2 - General Ulcer CM Notes Start: 01/26/23 10:29 Freq: Status: Active Protocol: Activity Type Activity Date Activity User E-sign Co-sign Detail Recorded Client Recorded Date Recorded By Document 01/26/23 11:00 Laptop 01/26/23 11:04 01/26/23 11:00 Wound Center Nurse 2 #1 R Osorio -Time 11:01 -Correct Patient Yes -Correct Side, Site, Position Yes -Correct Procedure Yes -Procedure Performed Yes -Type of Procedure Debridement -Clinical Debridement Subcutaneous -Tissue Removed Subcutaneous -Post Debridement (cm) - Length 5.2 -Post Debridement (cm) - Width 0.4 -Post Debridement (cm) - Depth 0.2 -Total Square (Post) (cm) 2.08 -Area of Debridement (cm) - Length 5.2 -Area of Debridement (cm) - Width 0.4 -Total Square (Area) (cm) 2.08 -Tunneling No -Undermining/Tunneling No -Circular Undermining No -Wound/Ulcer Outcome Not Healed -Ulcer Cleansing Rinsed/ Irrigated with Saline -Foul Odor after Cleansing No -Bioengineered Tissue No -Bleeding Controlled with Pressure -Treatment Response Procedure Tolerated Well -Offloading No -Debridement - Subq, 1st 20sq cm Yes Pain Scale: 0-10 Numeric Is Patient Pain Free? Yes Assessment/Plan Assessment/Plan (1) Non-pressure chronic ulcer of right lower leg with fat layer exposed: CODE(S): L97.912 - Non-pressure chronic ulcer of unspecified part of right lower leg with fat layer exposed PLAN: Patient was examined evaluated. All findings were discussed with the patient. All questions were answered to the patient satisfaction. Excisional debridement down to and including subcutaneous tissue of the sanguinous crust to the anterior aspect of the right leg. Predebridement measurement is sanguinous crust. Postdebridement measurement is 5.2 x 0.4 x 0.2 cm. Wound base is granular nature with sanguinous drainage. No probe to bone after debridement. The patient's full-thickness ulceration to the lower leg was dressed with Skylar, border foam and Tubigrip. Order will be sent for [facility] dressing supplies. Patient is to change his dressing Tuesday, with Skylar, border foam and Tubigrip. Follow-up in 1 week. 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
[2023-02-02 13:52] VITALS: BP 141/54; PULSE 61; RESP 18; TEMP 35.4
--- NOTE | 2023-02-02 14:09 | PN.PCM_ITS ---
History of Present Illness Date of Service: 02/02/23 Chief Complaint: Right leg ulceration History of Wound: Traumatic leg ulceration Progress of Wound: Mr. Ralph is a 77-year-old diabetic male presenting to the wound care center today at [facility] for follow-up and evaluation of full- thickness ulceration to the right anterior leg after falling from a ladder. Patient is a diabetic is on diabetic medication and is well controlled. His last A1c was 6.8%. He presented to the [place] where he was placed on 2 antibiotics doxycycline and ciprofloxacin. Treatment has been unremarkable with antibiotics. He has been doing home dressing changes. He denies any new onset of trauma except stated above. Denies constitutional symptoms. No other pedal complaints at this time. Subjective Subjective Mr. Ralph is a 77-year-old diabetic male presenting for follow-up of full- thickness leg laceration to right leg after a fall from a ladder. Patient is well controlled. His wound is healed at this time. He continue to do home dressing changes to follow-up today. He denies any new trauma. Denies constitutional symptoms. No other pedal complaints at this time. Objective Data Objective Data Vital Signs: Vital Signs Temp Pulse Resp BP O2 Del Method 95.8 F L 61 18 141/54 H Room Air 02/02/23 13:52 02/02/23 13:52 02/02/23 13:52 02/02/23 13:52 02/02/23 13:52 Oxygen Delivery Method Room Air Physical Exam Narrative Neurovascular status is unchanged. Nonpitting edema appreciated to the right lower extremity. Evidence of sanguinous crust across the place of the full- thickness ulceration was now healed. No erythema or proximal streaking or sign of infection. No pain with calf compression. 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 TENDER ) Arrival Mode Ambulatory Ambulatory Transfer Assistance None Accompanied by Patient Identification Verified (Name & Yes Yes ) Patient Requires Transmission-Based No Precautions Vital Signs Temperature (97.8 F-99.1 F) 96.5 F L 95.8 F L Temperature Source Temporal Temporal Pulse Rate (60-100) 61 61 Pulse Location Monitor Monitor Respiratory Rate (12-18) 18 18 Respiratory rate source Observation Observation Oxygen Delivery Method Room Air Blood Pressure (90/60-120/80) 150/75 H 141/54 H Blood Pressure Mean (mm Hg) 100 83 Source Monitor Monitor Position Sitting Blood Pressure Location Left Arm History Since Last Visit- (Skip if this is Patient's initial visit) Have you changed medications since your No No last visit? Any new allergies or adverse reactions No No Had a fall/change in ADL's that may No No increase risk of falls Signs or symptoms of abuse and/or No No neglect since last visit Have you been in the hospital since your No No last visit? Has dressing in place as prescribed Yes Yes Has compression in place as prescribed N/A Yes Has offloadiing in place as prescribed Yes No Experienced any changes in pain level or No No management Left Footwear Regular Shoe Right Footwear Regular Shoe Pain Scale: 0-10 Numeric Is Patient Pain Free? Yes Yes Lower Extremity Assessment/ Foot Assessment/ Toe Nail Assessment Left -Posterior Tibial Palpable Yes -Dorsalis Pedis Palpable Yes -Hair Growth on Legs No -Hair Growth on Toes No -Temperature of Extremity Warm -Capillary Refill Greater than 3 Seconds -Dependent Rubor No -Blanched when Elevated No -Lipodermatosclerosis No -Other Deformity No -Prior Foot Ulcer No -Charcot Joint No -Prior Amputation No -Thick No -Discolored No -Deformed No -Improper Length & Hygeine No Right -Posterior Tibial Palpable Yes -Dorsalis Pedis Palpable Yes -Hair Growth on Legs No -Hair Growth on Toes No -Temperature of Extremity Warm -Capillary Refill Greater than 3 Seconds -Dependent Rubor No -Blanched when Elevated No -Other Deformity No -Prior Foot Ulcer No -Charcot Joint No -Prior Amputation No -Thick No -Discolored No -Deformed No -Improper Length & Hygeine No Communication Assessment Preferred language Macedonian Able to Read Yes Able to Write Yes Right Hearing Abillity Normal Left Hearing Abillity Normal Visual Assistive Devices Glasses Teaching Assessment Preferences Verbal,Written, Demonstration Barriers to Learning None Readiness To Learn Good Willingness to Engage in Self Management Med Activies Readiness to Engage in Self Management Med Activities Anxiety Level Calm Cooperation Cooperative Perception Coherent Interest in Health Problem Asks Questions Education Importance Acknowledges Need Does Patient Smoke tobacco or other No substances Smoking Status Former smoker Is Patient Diabetic Yes Functional Assessment Recent Decline in Ability to Perform Denies Any Declines Teaching: Wound Center Dressing Your Wound -Person Taught Patient *Welcome to the Wound Center -Person Taught Patient WC - Nurse 1 - General Ulcer Measurement Start: 01/26/23 10:29 Freq: Status: Active Protocol: Activity Type Activity Date Activity User E-sign Co-sign Detail Recorded Client Recorded Date Recorded By Document 01/26/23 10:32 DL Desktop 01/26/23 10:48 DL Document 02/02/23 13:52 KW Desktop 02/02/23 13:58 KW 01/26/23 02/02/23 10:32 13:52 Wound Center Nurse 1 #1 R Osorio -Current Size (cm) - Length 5.5 -Current Size (cm) - Width 0.4 -Current Size (cm) - Depth 0.2 -Total Square Cm 2.20 -Photo Taken Yes -Exudate Amt Small None Present -Exudate Type Serosanguineous -Wound Margin Distinct, Outline Attached -Granulation Amt Small (1-33%) None Present (0 %) -Granulation Quality Michie -Necrosis Amt Large (67-100%) None Present (0 %) -Necrotic Tissue Type Adherent Slough -Structure Exposed N/A -Texture (Lauren-wound Skin Appearance) Scarring Assessed -Moisture (Lauren-wound Skin Appearance) No Abnormality Assessed -Color (Lauren-wound Skin Appearance) No Abnormality Assessed -Temperature (Lauren-wound Skin No Abnormality No Abnormality Appearance) (Pt Warm) (Pt Warm) -Tenderness on Palpation (Lauren-wound No Skin Appearance) -Ulcer Cleansing Soap and Water Rinsed/ Irrigated with Saline -Foul Odor after Cleansing No -Anesthetic Used 5% Lidocaine 5% Lidocaine Gel Gel Right Calf (cm) 31.5 Right Ankle (cm) 19.6 Left Calf (cm) 33 Left Ankle (cm) 19.6 HANNY - Nurse 2 - General Ulcer CM Notes Start: 01/26/23 10:29 Freq: Status: Active Protocol: Activity Type Activity Date Activity User E-sign Co-sign Detail Recorded Client Recorded Date Recorded By Document 01/26/23 11:00 Laptop 01/26/23 11:04 Document 02/02/23 14:08 Laptop 02/02/23 14:09 01/26/23 02/02/23 11:00 14:08 Wound Center Nurse 2 #1 R Osorio -Time 11:01 -Correct Patient Yes No -Correct Side, Site, Position Yes No -Correct Procedure Yes No -Procedure Performed Yes No -Type of Procedure Debridement -Clinical Debridement Subcutaneous -Tissue Removed Subcutaneous -Post Debridement (cm) - Length 5.2 0 -Post Debridement (cm) - Width 0.4 0 -Post Debridement (cm) - Depth 0.2 0 -Total Square (Post) (cm) 2.08 0 -Area of Debridement (cm) - Length 5.2 0 -Area of Debridement (cm) - Width 0.4 0 -Total Square (Area) (cm) 2.08 0 -Tunneling No -Undermining/Tunneling No -Circular Undermining No -Wound/Ulcer Outcome Not Healed Healed- Epithelialized -Ulcer Cleansing Rinsed/ Irrigated with Saline -Foul Odor after Cleansing No -Bioengineered Tissue No -Bleeding Controlled with Pressure -Treatment Response Procedure Tolerated Well -Offloading No -Debridement - Subq, 1st 20sq cm Yes Pain Scale: 0-10 Numeric Is Patient Pain Free? Yes Yes Assessment/Plan Assessment/Plan (1) Non-pressure chronic ulcer of right lower leg with fat layer exposed: CODE(S): L97.912 - Non-pressure chronic ulcer of unspecified part of right lower leg with fat layer exposed PLAN: Patient was examined evaluated. All findings were discussed with the patient. All questions were answered to the patient satisfaction. The patient's right leg laceration is healed with no sign of infection. The patient will continue to wear his compression sleeve for an additional week and will continue to monitor sure his sanguinous crust to the right anterior leg. Educated the patient on signs and symptoms of infection as well as reopening of the wound. The patient was educated to continue strict glycemic control. The patient will follow-up to the wound care center as needed. He left the office pleased with his visit. 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
== END 2023-02-03 15:33 | disposition home or self-care (01) ==
LOC: WC 13:45
PROVIDERS: PCP Family Medicine Geriatric Medicine; Referring Provider Family Medicine Geriatric Medicine; Visit Provider Podiatrist Foot & Ankle Surgery
DX: L97.812 Non-pressure chronic ulcer of other part of right lower leg with fat layer exposed (principal); E11.9 Type 2 diabetes mellitus without complications; E78.5 Hyperlipidemia, unspecified; I25.10 Atherosclerotic heart disease of native coronary artery without angina pectoris; I10 Essential (primary) hypertension; S81.811S Laceration without foreign body, right lower leg, sequela; W11.XXXS Fall on and from ladder, sequela; Z79.84 Long term (current) use of oral hypoglycemic drugs; Z79.02 Long term (current) use of antithrombotics/antiplatelets; Z79.85 Long-term (current) use of injectable non-insulin antidiabetic drugs; Z79.899 Other long term (current) drug therapy; Z87.891 Personal history of nicotine dependence
CPT/HCPCS: 11042; 99213; 99214; G0463

== ENCOUNTER → 2023-03-04 | Outpatient (CLI) | payer MEDICARE, OTHER, SELFPAY | END | disposition home or self-care (01) | LOC: PSN 10:58 | PROVIDERS: PCP Family Medicine Geriatric Medicine; Referring Provider Family Medicine Geriatric Medicine; Visit Provider Family Medicine Geriatric Medicine | DX: R68.83 Chills (without fever) (principal) | CPT/HCPCS: 87635; 87804; 87807; C9803 ==

== ENCOUNTER → 2023-03-11 | Outpatient (CLI) | payer MEDICARE, OTHER, SELFPAY | END | disposition home or self-care (01) | LOC: PSN 12:16 | PROVIDERS: PCP Family Medicine Geriatric Medicine; Referring Provider Family Medicine Geriatric Medicine; Visit Provider Family Medicine Geriatric Medicine | DX: R68.83 Chills (without fever) (principal) | CPT/HCPCS: 87635; 87804; 87807; C9803 ==

== ENCOUNTER → 2023-04-26 | Outpatient (CLI) | payer MEDICARE, OTHER, SELFPAY ==
--- NOTE | 2023-04-26 14:44 | CT_ITS ---
STUDY: CT MAXILLOFACIAL SINUSES REASON FOR EXAM: Male, 78 years old. CHRONIC SINUSITIS RADIATION DOSAGE (If Supplied By Facility): CTDIvol = ( 33.06 ) mGy, DLP = ( 825.58 ) mGycm TECHNIQUE: The patient was scanned in a multi detector CT scanner. High resolution axial imaging was performed without the administration of intravenous contrast material. Sagittal and coronal images were reconstructed. Individualized dose optimization techniques were used for this CT. COMPARISON: None. FINDINGS: FRONTAL SINUSES: Normal aeration, without mucosal inflammatory disease. ETHMOIDAL SINUSES: Normal aeration, without mucosal inflammatory disease. MAXILLARY SINUSES: There is opacification of the right maxillary sinus. Partial opacification of the left maxillary sinus. SPHENOIDAL SINUSES: Normal aeration, without mucosal inflammatory disease. There is partial obstruction of the ostiomeatal complex is bilaterally secondary to mucosal hypertrophy. Normal bilateral middle turbinates. Normal bilateral inferior turbinates. Normal midline nasal septum. There is patency of the bilateral nasal airways. The visualized osseous structures are normal. The visualized bilateral orbital contents are normal. CT/Sinus/Facial Bone IMPRESSION: Bilateral maxillary sinusitis worse on the right side. Electronically Signed: Alfredo Parker MD at 15:37 EST ,
== END | disposition home or self-care (01) ==
LOC: CT 14:41
PROVIDERS: PCP Family Medicine Geriatric Medicine; Referring Provider Otolaryngology; Visit Provider Otolaryngology
DX: J32.8 Other chronic sinusitis (principal)
CPT/HCPCS: 70486

== ENCOUNTER → 2023-07-04 | Outpatient (CLI) | payer MEDICARE, OTHER, SELFPAY | END | disposition home or self-care (01) | LOC: LABSPEC 15:27 | PROVIDERS: PCP Family Medicine Geriatric Medicine; Referring Provider Otolaryngology; Visit Provider Otolaryngology | DX: J32.9 Chronic sinusitis, unspecified (principal) | CPT/HCPCS: 87070; 87077; 87186; 87205 ==

== ENCOUNTER → 2023-08-10 | Outpatient (CLI) | payer MEDICARE, OTHER, SELFPAY ==
[2023-08-10 12:51] LABS: Absolute Lymphocyte Count 1.18 X10^3/uL (0.83-4.51); Absolute Neutrophil Count 4.6 X10^3/uL (2.0-7.7); Basophil# 0.03 X10^3/uL; Basophil% 0.5 % (0-1); Eosinophil# 0.02 X10^3/uL; Eosinophils% 0.3 % (0-5); Hematocrit 49.3 % (40-54); Hemoglobin 16.5 g/dL (13.0-16.5); Lymphocyte # 1.18 X10^3/ul (0.83-4.51); Lymphocyte % 18.8 % (19-41); Mean Corp Hgb Conc 33.5 g/dL (32-36); Mean Corpuscular Hgb 31.2 pg (27.0-32.0); Mean Corpuscular Volume 93.2 fL (80-94); Monocyte# 0.43 X10^3/uL; Monocyte% 6.8 % (0-10); NRBC Flagged by Analyzer 0 % (0-5); Neutrophil # 4.59 X10^3/uL (2.7-7.7); Neutrophil % 73.1 % (47-70); Platelet Count 180 K/mm3 (150-450); RBC Distribution Width CV 12.5 % (11.6-14.6); RBC Distribution Width SD 42.9 fl (35.1-43.9); Red Blood Count 5.29 M/mm3 (4.6-6.2); White Blood Count 6.3 K/mm3 (4.4-11.0)
[2023-08-10 13:21] LABS: ALB/GLOB Ratio 1.4 RATIO (0.9-2.4); AST(SGOT) 26 U/L (15-37); Alanine Aminotransfer ALT/SGPT 64 U/L (16-61); Albumin, Serum 3.7 g/dL (3.2-5.0); Alkaline Phosphatase 67 U/L (45-117); Anion Gap 4 (5-15); BUN 15 mg/dL (7-18); BUN/Creat Ratio 17.3 RATIO (10-20); Calcium,Total 8.4 mg/dL (8.5-10.1); Chloride 109 mmol/L (98-107); Cholesterol 171 mg/dL (200); Creatinine, Serum 0.87 mg/dL (0.70-1.30); EST Glomerular Filtration Rate 91 mL/min (>60); Est Glom Filt Rate - Afr Amer 110 mL/min (>60); Globulin 2.6 g/dL (2.2-4.2); Glucose 98 mg/dL (74-106); High Density Lipoprotein 50 mg/dL; Potassium 3.9 mmol/L (3.5-5.1); Protein, Total 6.3 g/dL (6.4-8.2); Sodium Level 140 mmol/L (136-145); Thyroid Stim Hormone (TSH) 2.21 uIU/mL (0.358-3.74); Triglycerides 171 mg/dL; Very Low Density Lipoprotein 34 mg/dL (5-40)
== END | disposition home or self-care (01) ==
LOC: LAB 11:39
PROVIDERS: PCP Family Medicine Geriatric Medicine; Visit Provider Family Medicine Geriatric Medicine
DX: I10 Essential (primary) hypertension (principal); E11.65 Type 2 diabetes mellitus with hyperglycemia; E78.5 Hyperlipidemia, unspecified; E55.9 Vitamin D deficiency, unspecified
CPT/HCPCS: 36415; 80053; 80061; 82306; 84443; 85025

== ENCOUNTER → 2024-02-08 | Outpatient (CLI) | payer MEDICARE, OTHER, SELFPAY ==
[2024-02-08 11:44] LABS: Absolute Lymphocyte Count 0.53 X10^3/uL (0.83-4.51); Absolute Neutrophil Count 6.5 X10^3/uL (2.0-7.7); Basophil# 0.03 X10^3/uL; Basophil% 0.4 % (0-1); Eosinophil# 0.01 X10^3/uL; Eosinophils% 0.1 % (0-5); Hematocrit 47.3 % (40-54); Hemoglobin 16.4 g/dL (13.0-16.5); Lymphocyte # 0.53 X10^3/ul (0.83-4.51); Lymphocyte % 6.8 % (19-41); Mean Corp Hgb Conc 34.7 g/dL (32-36); Mean Corpuscular Hgb 32.2 pg (27.0-32.0); Mean Corpuscular Volume 92.9 fL (80-94); Mean Platelet Vol. 11.3 fl (6.2-12.0); Monocyte# 0.75 X10^3/uL; Monocyte% 9.6 % (0-10); NRBC Flagged by Analyzer 0 % (0-5); Neutrophil % 82.7 % (47-70); POSITIVE DIFFERENTIAL YES; Platelet Count 143 K/mm3 (150-450); RBC Distribution Width CV 12.9 % (11.6-14.6); RBC Distribution Width SD 43.8 fl (35.1-43.9); Red Blood Count 5.09 M/mm3 (4.6-6.2); White Blood Count 7.9 K/mm3 (4.4-11.0)
[2024-02-08 12:09] LABS: Vitamin D,25 Hydroxy 45.3 ng/mL
[2024-02-08 12:21] LABS: ALB/GLOB Ratio 1.3 RATIO (0.9-2.4); AST(SGOT) 24 U/L (15-37); Alanine Aminotransfer ALT/SGPT 57 U/L (16-61); Albumin, Serum 3.7 g/dL (3.2-5.0); Alkaline Phosphatase 60 U/L (45-117); Anion Gap 6 (5-15); BUN 15 mg/dL (7-18); BUN/Creat Ratio 15.1 RATIO (10-20); Calcium,Total 8.5 mg/dL (8.5-10.1); Chloride 108 mmol/L (98-107); Cholesterol 112 mg/dL (200); EST Glomerular Filtration Rate 77 mL/min (>60); Est Glom Filt Rate - Afr Amer 94 mL/min (>60); Globulin 2.9 g/dL (2.2-4.2); Glucose 139 mg/dL (74-106); High Density Lipoprotein 47 mg/dL; Potassium 3.6 mmol/L (3.5-5.1); Protein, Total 6.6 g/dL (6.4-8.2); Sodium Level 138 mmol/L (136-145); Triglycerides 161 mg/dL; Very Low Density Lipoprotein 32 mg/dL (5-40)
== END | disposition home or self-care (01) ==
LOC: POLAB3 11:22
PROVIDERS: PCP Family Medicine Geriatric Medicine; Visit Provider Family Medicine Geriatric Medicine
DX: E11.65 Type 2 diabetes mellitus with hyperglycemia (principal); E78.5 Hyperlipidemia, unspecified; E55.9 Vitamin D deficiency, unspecified; I10 Essential (primary) hypertension
CPT/HCPCS: 36415; 80053; 80061; 82306; 84443; 85025

== ENCOUNTER → 2024-02-29 | Outpatient (CLI) | payer MEDICARE, OTHER, SELFPAY ==
--- NOTE | 2024-02-29 12:26 | NEURO ---
NCS and/or EMG Patient Report Ordering Doctor: Nahun Grady Chi DATE OF SERVICE: 02/29/24 Sarwat presents with complaints of numbness and tingling in the right wrist and hand. Electrodiagnostic findings: Right median motor nerve demonstrates prolonged latency with normal amplitude and reduced conduction velocity. Normal right ulnar motor response, including conduction across the elbow. Prolonged right median sensory latency at the wrist. Needle EMG testing was performed in the right upper limb. All muscles tested showed no evidence of denervation with normal motor unit action potentials. Electrodiagnostic impression: This is an abnormal study in the right upper limb 1. Electrodiagnostic evidence suggestive of right-sided median mononeuropathy. This is consistent with a mild to moderate right carpal tunnel syndrome. 2. No electrodiagnostic evidence is noted for cervical radiculopathy. 3. No electrodiagnostic evidence is noted for ulnar neuropathy. Multi Select Codes Neurology Neurology Interp Codes: 80583-82 Musc test done w/n test comp (interp) and 12405-76 Nrv cndj tst 5-6 studies (interp)
--- NOTE | 2024-02-29 12:31 | NEURO ---
NCS and/or EMG Patient Report Ordering Doctor: Nahun Grady Chi DATE OF SERVICE: 02/29/24 Sarwat presents for electrodiagnostic testing of the right upper limb. Reports a 6-month history of numbness and tingling in the right wrist and hand. Electrodiagnostic findings: Right median motor nerve demonstrates prolonged latency with normal amplitude and reduced conduction velocity. Normal right ulnar motor response, including conduction to the elbow. Prolonged right median sensory latency at the wrist. Normal right median and ulnar F?wave. Needle EMG testing was performed the right upper limb. All muscles tested showed no evidence of denervation with normal motor unit action potentials. Electrodiagnostic impression: This is an abnormal study in the right upper limb 1. Electrodiagnostic findings suggestive of right-sided median mononeuropathy. This consistent with a moderate right carpal tunnel syndrome. Multi Select Codes Neurology Neurology Interp Codes: 91702-20 Musc test done w/n test comp (interp) and 01595-18 Nrv cndj tst 5-6 studies (interp)
== END | disposition home or self-care (01) ==
LOC: PSN 09:43
PROVIDERS: PCP Family Medicine Geriatric Medicine; Referring Provider Family Medicine Geriatric Medicine; Visit Provider Family Medicine Geriatric Medicine
DX: R20.0 Anesthesia of skin (principal); I73.9 Peripheral vascular disease, unspecified
CPT/HCPCS: 95886; 95909

== ENCOUNTER 2024-05-28 10:27 | Outpatient (CLI) | payer MEDICARE, OTHER, SELFPAY ==
[2024-05-28] MEDS: 0.9% Normal Saline (1000mL) 1,000 ML 999 ML IV ×2 (10:45→11:51)
[2024-05-28] MEDS: 0.9% NaCl Peripheral Flush Adult/Peds IV (10:45)
[2024-05-28 10:49] VITALS: BP 149/70; PULSE 63; RESP 16; TEMP 35.9; O2SAT 97; BMI 21.7
[2024-05-28 13:07] VITALS: BP 124/63; PULSE 57; RESP 16; TEMP 35.7; O2SAT 97
== END 2024-05-28 23:59 | disposition home or self-care (01) ==
LOC: MEDOUTP 10:27
PROVIDERS: PCP Family Medicine Geriatric Medicine; Referring Provider Family Medicine Geriatric Medicine; Visit Provider Family Medicine Geriatric Medicine
DX: E86.0 Dehydration (principal)
CPT/HCPCS: 96360; 96361; A4216

== ENCOUNTER → 2024-05-28 | Outpatient (CLI) | payer MEDICARE, OTHER, SELFPAY ==
[2024-05-28 10:30] LABS: Absolute Lymphocyte Count 1.07 X10^3/uL (0.83-4.51); Absolute Neutrophil Count 6.4 X10^3/uL (2.0-7.7); Basophil# 0.02 X10^3/uL; Basophil% 0.2 % (0-1); Eosinophil# 0.03 X10^3/uL; Eosinophils% 0.4 % (0-5); Hematocrit 50.5 % (40-54); Hemoglobin 17.3 g/dL (13.0-16.5); Lymphocyte # 1.07 X10^3/ul (0.83-4.51); Lymphocyte % 13.2 % (19-41); Mean Corp Hgb Conc 34.3 g/dL (32-36); Mean Corpuscular Hgb 31.9 pg (27.0-32.0); Mean Platelet Vol. 11.4 fl (6.2-12.0); Monocyte# 0.51 X10^3/uL; Monocyte% 6.3 % (0-10); NRBC Flagged by Analyzer 0 % (0-5); Neutrophil # 6.42 X10^3/uL (2.7-7.7); Neutrophil % 79.5 % (47-70); Platelet Count 174 K/mm3 (150-450); RBC Distribution Width CV 12.5 % (11.6-14.6); RBC Distribution Width SD 42.7 fl (35.1-43.9); Red Blood Count 5.43 M/mm3 (4.6-6.2); White Blood Count 8.1 K/mm3 (4.4-11.0)
[2024-05-28 11:35] LABS: ALB/GLOB Ratio 1.8 RATIO (0.9-2.4); AST(SGOT) 34 U/L (<=37); Alanine Aminotransfer ALT/SGPT 77 U/L (<=46); Albumin, Serum 4.2 g/dL (3.4-4.8); Alkaline Phosphatase 69 U/L (40-129); Anion Gap 9 (5-15); BUN 14 mg/dL (4-19); BUN/Creat Ratio 17.1 RATIO (10-20); Calcium 9.4 mg/dL (7.6-11.0); Carbon Dioxide 28.6 mmol/L (22.0-29.0); Chloride 104 mmol/L (96-108); Creatinine, Serum 0.82 mg/dL (0.70-1.20); EST Glomerular Filtration Rate 90 (>60); Globulin 2.4 g/dL (2.2-4.2); Glucose 131 mg/dL (70-99); Potassium 4.1 mmol/L (3.3-5.1); Protein, Total 6.6 g/dL (5.9-8.4); Sodium Level 141 mmol/L (133-145); Total Bilirubin 0.41 mg/dL (0.00-1.30)
== END | disposition home or self-care (01) ==
LOC: POLAB3 09:55
PROVIDERS: PCP Family Medicine Geriatric Medicine; Visit Provider Family Medicine Geriatric Medicine
DX: R53.83 Other fatigue (principal)
CPT/HCPCS: 36415; 80053; 84443; 85025

== ENCOUNTER 2024-06-05 17:04 | Outpatient (RCR) | payer MEDICARE, OTHER, SELFPAY ==
--- NOTE | 2024-06-05 17:53 | HP.PTEVAL_ITS ---
Patient's Visit Information Visit Information Visit Information: ANOOP BLANCO is a 79 year old M referred to Physical Therapy by Dr. Nahun Grady MD with a diagnosis of BPPV. Date of Evaluation: 06/05/24 Physical Therapist: John García, DPT, OCS, CSCS Visit Plan Plan: No skilled intervention needed today, educated him on being careful upon standiing to make sure he is steady before taking off, also on lack of concerns with vestibular system and above average balance for his age. Subjective Subjective: Dr. Grady thinks he has vertigo. Hard to walk in a straight line. Took him off of blood pressure meds recently. if he stands up too fast gets a little dizzy. Feels worn out lately. Had treatment and felt better(IV). Feels better this week. I am not dizzy but weaves around when walking and has done that for a year or so. Feels lightheaded and unsteady upon standing at times for 20 seconds. No other things or positions bother him. sleeping well. No spinning. Activities are normal. Spends day reading. No regular ex. 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 This is going well. Golf but not yet this year. Has [employer] trip in July. Has DM , no neuropathy, no numbness or tingling. Objective Objective: Walks into PT I , trasnfers chair I, bed I. Cervical AROM is WFL and without pain, UE AROM WFL. Balance is good today without and weaving or wavering. All MSQ positions are dizzy free. Sensation and coordination are good in the feet to reciprocal toe tapping and gross light touch. strength LE 4/5 knees and ankles and 4- hips - B hallpike tayler, - roll test, no dizzyness or nystagmus today. Oculomotor:unremarkable no nystagmus with gaze or head shake - skew eye deviation - ocular tilt normal purusit and saccades and normal VOR without any symptoms. Overall a normal presentation today but subjectively describing orthostatic hypotension which may be effecting him at times upon standing. Balance/Special Test Scores Functional Gait Assessment Score: 28 % Disability: 6.6700 CATSIB Score (Max score 120 seconds): 120 Dizziness Score: 4 Rehabilitation Potential Physical Therapy Diagnosis: No evidence vestibular problems today Anticipated Interventions Text: Thank you for the opportunity to evaluate your patient. For Medicare and Medicare HMO plans, please review the plan of care and approve it. It will need to be FAXED BACK to us at [phone] for Medicare purposes. For Medicare only, by signing this I certify the plan of care. Please let me know if there are questions or concerns regarding this plan of care. Physician Signature: Date:
== END 2024-06-05 19:00 | disposition home or self-care (01) ==
LOC: PT 17:04
PROVIDERS: PCP Family Medicine Geriatric Medicine; Referring Provider Family Medicine Geriatric Medicine; Visit Provider Family Medicine Geriatric Medicine
DX: R42 Dizziness and giddiness (principal); H81.10 Benign paroxysmal vertigo, unspecified ear
CPT/HCPCS: 97161

== ENCOUNTER → 2024-06-12 | Outpatient (CLI) | payer MEDICARE, OTHER, SELFPAY ==
--- NOTE | 2024-06-12 06:33 | MRI_ITS ---
PROCEDURE: Noncontrast MRI of the brain. REASON FOR EXAM: IMBALANCE TECHNIQUE: Multiplanar, multisequence MRI images of the brain were obtained without IV contrast. COMPARISON: None. FINDINGS: Bones of the calvarium are intact. Included upper cervical spinal cord unremarkable. The orbits, sella, and parasellar structures show no specific abnormality. Included extracranial soft tissues are grossly unremarkable. Major basilar intracranial flow voids are present. Prominence of the cortical sulci and ventricular system, compatible with mild/moderate brain parenchymal atrophy. Mastoid air cells are clear. A few mucous retention cysts or polyps inferior right maxillary sinus, the largest at 1.7 cm. No paranasal sinus air-fluid levels. No extra-axial fluid collection or midline shift. Richard-white matter differentiation is maintained. The basilar cisterns are clear. No cerebellopontine angle mass lesion demonstrated. There are no areas of restricted diffusion. No significant focal white matter lesions of the FLAIR sequence. MRI/Brain without Contrast IMPRESSION: [id number] brain parenchymal atrophy. No acute intracranial abnormality. No significant focal white matter lesions on the FLAIR sequence. A few mucous retention cysts or polyps are present in the inferior right maxill huber sinus, measuring up to 1.7 cm. Reading Location: [facility]
== END | disposition home or self-care (01) ==
LOC: MRI 06:24
PROVIDERS: PCP Family Medicine Geriatric Medicine; Referring Provider Family Medicine Geriatric Medicine; Visit Provider Family Medicine Geriatric Medicine
DX: R26.89 Other abnormalities of gait and mobility (principal)
CPT/HCPCS: 70551

== ENCOUNTER → 2024-08-15 | Outpatient (CLI) | payer MEDICARE, OTHER, SELFPAY ==
[2024-08-15 12:50] LABS: Absolute Lymphocyte Count 1.01 X10^3/uL (0.83-4.51); Absolute Neutrophil Count 6.6 X10^3/uL (2.0-7.7); Basophil# 0.04 X10^3/uL; Basophil% 0.5 % (0-1); Eosinophil# 0.02 X10^3/uL; Eosinophils% 0.2 % (0-5); Hematocrit 53.2 % (40-54); Hemoglobin 17.9 g/dL (13.0-16.5); Lymphocyte # 1.01 X10^3/ul (0.83-4.51); Lymphocyte % 12.2 % (19-41); Mean Corp Hgb Conc 33.6 g/dL (32-36); Mean Corpuscular Hgb 31.1 pg (27.0-32.0); Mean Corpuscular Volume 92.5 fL (80-94); Mean Platelet Vol. 11.2 fl (6.2-12.0); Monocyte# 0.58 X10^3/uL; NRBC Flagged by Analyzer 0 % (0-5); Neutrophil # 6.61 X10^3/uL (2.7-7.7); Neutrophil % 79.6 % (47-70); Platelet Count 172 K/mm3 (150-450); RBC Distribution Width CV 13.2 % (11.6-14.6); RBC Distribution Width SD 44.4 fl (35.1-43.9); Red Blood Count 5.75 M/mm3 (4.6-6.2); White Blood Count 8.3 K/mm3 (4.4-11.0)
[2024-08-16 11:31] LABS: Vitamin D,25 Hydroxy 48.2 ng/mL (30-100)
[2024-08-16 11:42] LABS: AST(SGOT) 30 U/L (<=37); Alanine Aminotransfer ALT/SGPT 53 U/L (<=46); Albumin, Serum 4.5 g/dL (3.4-4.8); Alkaline Phosphatase 72 U/L (40-129); Anion Gap 9 (5-15); BUN 18 mg/dL (4-19); BUN/Creat Ratio 21.5 RATIO (10-20); Calcium,Total 9.6 mg/dL (7.6-11.0); Carbon Dioxide 28.6 mmol/L (21.0-32.0); Chloride 103 mmol/L (98-108); Creatinine, Serum 0.84 mg/dL (0.70-1.20); EST Glomerular Filtration Rate 89 (>60); Globulin 2.2 g/dL (2.2-4.2); Glucose 89 mg/dL (70-99); Potassium 4.4 mmol/L (3.3-5.1); Protein, Total 6.7 g/dL (5.9-8.4); Sodium Level 141 mmol/L (133-145); Total Bilirubin 0.37 mg/dL (0.00-1.30)
== END | disposition home or self-care (01) ==
LOC: LAB 12:18
PROVIDERS: PCP Family Medicine Geriatric Medicine; Referring Provider Family Medicine Geriatric Medicine; Visit Provider Family Medicine Geriatric Medicine
DX: I10 Essential (primary) hypertension (principal); E11.65 Type 2 diabetes mellitus with hyperglycemia; E55.9 Vitamin D deficiency, unspecified
CPT/HCPCS: 36415; 80053; 82306; 84443; 85025

== ENCOUNTER → 2025-01-30 | Outpatient (CLI) | payer MEDICARE, OTHER, SELFPAY | END | disposition home or self-care (01) | LOC: POLAB3 13:39 | PROVIDERS: PCP Family Medicine Geriatric Medicine; Visit Provider Family Medicine Geriatric Medicine | DX: S81.802A Unspecified open wound, left lower leg, initial encounter (principal); X58.XXXA Exposure to other specified factors, initial encounter | CPT/HCPCS: 87070; 87075; 87077; 87186; 87205; 87640 ==

== ENCOUNTER → 2025-01-30 | Outpatient (CLI) | payer MEDICARE, OTHER, SELFPAY ==
--- NOTE | 2025-01-30 14:34 | VDLE_ITS ---
Reason For Study VL/Venous Duplex US - Alexandro Extrem
== END | disposition home or self-care (01) ==
LOC: CVS 14:31
PROVIDERS: PCP Family Medicine Geriatric Medicine; Referring Provider Family Medicine Geriatric Medicine; Visit Provider Family Medicine Geriatric Medicine
DX: R60.0 Localized edema (principal)
CPT/HCPCS: 93970

== ENCOUNTER → 2025-02-13 | Outpatient (CLI) | payer MEDICARE, OTHER, SELFPAY ==
[2025-02-13 10:37] LABS: Hematocrit 49.4 % (40-54); Hemoglobin 17.1 g/dL (13.0-16.5); Immature Granulocytes Count 0.020 X10^3/uL (0.0-0.0); Mean Corp Hgb Conc 34.6 g/dL (32-36); Mean Corpuscular Volume 91.0 fL (80-94); Mean Platelet Vol. 11.5 fl (6.2-12.0); NRBC Flagged by Analyzer 0 % (0-5); Platelet Count 142 K/mm3 (150-450); RBC Distribution Width CV 12.7 % (11.6-14.6); RBC Distribution Width SD 42.7 fl (35.1-43.9); Red Blood Count 5.43 M/mm3 (4.6-6.2); White Blood Count 5.9 K/mm3 (4.4-11.0)
[2025-02-13 11:40] LABS: AST(SGOT) 29 U/L (<=37); Alanine Aminotransfer ALT/SGPT 31 U/L (<=46); Albumin, Serum 4.3 g/dL (3.4-4.8); Alkaline Phosphatase 65 U/L (40-129); Anion Gap 9 (5-15); BUN 20 mg/dL (4-19); BUN/Creat Ratio 20.9 RATIO (10-20); Calcium,Total 9.5 mg/dL (7.6-11.0); Carbon Dioxide 25.7 mmol/L (21.0-32.0); Chloride 104 mmol/L (98-108); Globulin 2.2 g/dL (2.2-4.2); Glucose 262 mg/dL (70-99); Potassium 4.1 mmol/L (3.3-5.1); Vitamin D,25 Hydroxy 45.3 ng/mL (30-100)
[2025-02-13 18:15] LABS: Xtra Tube Kwok EXTRA TUBE
== END | disposition home or self-care (01) ==
LOC: POLAB3 10:15
PROVIDERS: PCP Family Medicine Geriatric Medicine; Visit Provider Family Medicine Geriatric Medicine
DX: I12.9 Hypertensive chronic kidney disease with stage 1 through stage 4 chronic kidney disease, or unspecified chronic kidney disease (principal); E11.22 Type 2 diabetes mellitus with diabetic chronic kidney disease; E55.9 Vitamin D deficiency, unspecified; N18.9 Chronic kidney disease, unspecified
CPT/HCPCS: 36415; 80053; 82306; 84443; 85025

== ENCOUNTER 2025-02-19 13:30 | Outpatient (RCR) | payer MEDICARE, OTHER, SELFPAY ==
[2025-02-05 09:08] VITALS: BP 159/69; PULSE 95; RESP 18; TEMP 35.9; BMI 22.2
--- NOTE | 2025-02-05 15:45 | PCM.WC.HP ---
History of Present Illness Date of Service: 02/05/25 Chief Complaint: Traumatic wound of the left pretibial surface History of Wound: This is a 79-year-old male who was in his normal state of health until December 03, 2024, at which time he sustained a traumatic injury to the left pretibial surface as a result of an inadvertent chainsaw injury. The patient was subsequently seen and evaluated by his primary care physician, Dr. Ashly Grady, on January 30, 2025. At that time, cultures were obtained, and the patient was empirically started on cephalexin and doxycycline orally, for 7-day course. Culture results were subsequently positive for Staphylococcus epidermidis, rare in amount. The patient has been using Neosporin topically. Patient's wound has failed to heal and the expected fashion, and he has been referred for evaluation and management at the [facility]. Patient suffers from multiple pre-existing medical problems, including diabetes mellitus, cirrhosis, hypertension, and coronary artery disease. The patient is not a smoker. A venous duplex examination performed on January 30, 2025, was unremarkable, revealing no evidence of lower extremity thrombophlebitis. The left great saphenous vein was noted to be absent, the result of previous harvesting. The patient claims to sleep on a flat mattress at night. He also claims to ambulate liberally and without limitation. [facility] Medical History Peripheral artery disease Traumatic open wound of left lower leg with delayed healing Non-pressure chronic ulcer of left lower leg with fat layer exposed Localized swelling of both lower legs Cirrhosis of liver Diabetes mellitus type 2, controlled, without complications Non-pressure chronic ulcer of right lower leg with fat layer exposed Coronary artery disease Fatigue Bradycardia Nonalcoholic fatty liver disease Fatty liver Liver fibrosis Preop cardiovascular exam Nonrheumatic aortic (valve) stenosis Segmental and somatic dysfunction of pelvic region Segmental and somatic dysfunction of sacral region Segmental and somatic dysfunction of lumbar region Vitamin D deficiency GERD (gastroesophageal reflux disease) Type 2 diabetes mellitus without complication Essential hypertension Atherosclerosis of coronary artery of [place] heart without angina pectoris History of 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/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) PAC (premature atrial contraction) Chest pain on exertion Hyperlipidemia Home Medications ?Medication ?Instructions ?Recorded ?Last Taken ?Type cholecalciferol (vitamin D3) 25 3,000 unit PO QDAY 05/17/19 Unknown History mcg (1,000 unit) capsule esomeprazole magnesium 40 mg 40 mg PO DAILY 05/17/19 Unknown History capsule,delayed release (Nexium) fluticasone propionate 50 1 spray intranasal DAILY 05/22/20 Unknown History mcg/actuation nasal spray,suspension ascorbic acid (vitamin C) 250 mg 250 mg PO DAILY 11/10/20 Unknown History tablet empagliflozin 25 mg tablet 25 mg PO QAM 05/11/21 Unknown History (Jardiance) cyanocobalamin (vitamin B-12) 1,000 mcg IM QMONTH 08/29/24 Unknown History 1,000 mcg/mL injection solution diclofenac sodium 1 % topical gel 2 g topical ONCE PRN pain 08/29/24 Unknown History glipizide 10 mg tablet 10 mg PO QDAY 08/29/24 Unknown History semaglutide 0.25 mg or 0.5 mg (2 0.5 mg subcut QWEEK 08/29/24 Unknown History mg/3 mL) subcutaneous pen injector (Ozempic) vitamin E mixed 400 unit capsule 400 unit PO BID 08/29/24 Unknown History Allergy/AdvReac Type Severity Reaction Status Date / Time No Known Allergies Allergy Verified 08/29/24 13:59 Family History Brother Diabetes Myocardial infarction Father Diabetes Heart disease Surgical History History of carpal tunnel repair History of repair of anterior cruciate ligament of right knee 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) Social History Smoking Status: Never smoker how long ago did patient quit smokin years ago alcohol intake: never substance use type: does not use caffeine: Yes Type: tea what type of physical activity do you participate in: none Vital Signs Vital Signs Vital Signs: 02/05/25 09:08 Temperature 96.7 F L Temperature Source Temporal Pulse Rate 95 Respiratory Rate 18 Blood Pressure 159/69 H Blood Pressure Mean 99 Blood Pressure Source Monitor Blood Pressure Position Semi-Fowlers Blood Pressure Location Left Arm Oxygen Delivery Method Room Air Weight Weight: 138 lb Body Mass Index (BMI) 22.2 Physical Exam Const alert, oriented x3, no apparent distress, average body habitus, no limitations and well nourished Constitutional Narrative: The patient's BMI is 22.3. General Appearance: cooperative, comfortable and well developed Orientation / Consciousness: awake, oriented to person, oriented to place and oriented to time Exam Limitations: no limitations HEENT normocephalic and head/scalp atraumatic Head and Scalp: normal to inspection, normocephalic and atraumatic Face and Sinus: normal facial exam Nose: external nose normal External Ear: external ears normal Eyes EOMs intact bilaterally General Eye: normal appearance of both eyes Alignment: alignment normal Resp normal respiratory effort, normal air movement, no retractions and no use of accessory muscles Effort and Inspection: able to speak in complete sentences Extremity no calf tenderness General Extremity: Negative for clubbing or cyanosis Skin Wound Narrative: A small traumatic wound is noted on the patient's left pretibial surface. It is full-thickness in nature, extending through all layers of the dermis and into the subcutaneous tissues. Wound margins are well beveled. Dimensions are documented elsewhere. There is a moderate amount of bioburden and slough. Slight lauren-wound erythema is noted. Neuro oriented x3, CN's II-XII intact bilaterally, moves all extremities and no focal motor deficits Sensorium / Orientation: awake, alert, oriented to person, oriented to place and oriented to time Speech: speech normal Psych Appearance: grossly normal and appropriate Attitude: calm Activity / Motor Behavior: appropriate eye contact Speech: normal speech Mood & Affect: euthymic mood Thought Process: normal thought process Thought Content: normal thought content Attention / Concentration: attention grossly intact Debridement Note Debridement Note Wound debrided: Left pretibial wound Laterality: Left Type of Debridement: Excisional debridement Anesthesia Used: 5% Lidocaine Gel Depth: Down to and including healthy tissue and in the subcutaneous layer Percentage of wound debrided: 100 Instrument Used: 3mm curette Tissue Removed: Bioburden and slough Severity: Fat Layer Exposed Amount of bleeding with debridement: Mild Bleeding Controlled with: Compression and gauze Patient tolerated procedure: Patient tolerated procedure well Post-Debridement Measurements and Additional Note: Post-Debridement Measurements/Treatment HANNY - Nurse 1 - General Ulcer Assessment Start: 02/05/25 09:02 Freq: Status: Active Protocol: KEISHA Activity Type Activity Date Activity User E-sign Co-sign Detail Recorded Client Recorded Date Recorded By Document 02/05/25 09:08 RB [id number] 02/05/25 09:18 RB 02/05/25 09:08 WC - Today's Visit Information Type of service Initial Visit Arrival Mode Ambulatory Transfer Assistance None Patient Identification Verified (Name & Yes ) Patient Requires Transmission-Based No Precautions Height and Weight Height 5 ft 6 in Weight 138 lb Weight in Pounds 138.0 lbs Body Mass Index (BMI) 22.2 BMI Classification Normal Vital Signs Temperature (97.8 F-99.1 F) 96.7 F L Temperature Source Temporal Pulse Rate (60-100) 95 Pulse Location Monitor Respiratory Rate (12-18) 18 Respiratory rate source Observation Oxygen Delivery Method Room Air Blood Pressure (90/60-120/80) 159/69 H Blood Pressure Mean 99 Source Monitor Position Semi-Fowlers Blood Pressure Location Left Arm Pain Scale: 0-10 Numeric Is Patient Pain Free? No L gonzalez -Description Aching -Intensity 3 -Duration (hours) Acute -Pain Behavior Irritability -Pain Aggravating Factors Exercise/ Activity, Walking -Alleviating Factors/Interventions Medication -Effectiveness of Alleviating Factor/ Moderately Intervention effective Neuropathy Assessment Feet - Top Side and Bottom <Entered> (a) Communication Assessment Preferred language Nigerien Doughnut Fryer Required No Able to Read Yes Able to Write Yes Communication Tools None Caregiver Communication Skills No Impairment Impairment Right Hearing Abillity Use of Hearing Aid Left Hearing Abillity Use of Hearing Aid Visual Assistive Devices None Teaching Assessment Preferences Verbal,Written, Demonstration Barriers to Learning None Readiness To Learn Excellent Willingness to Engage in Self Management High Activies Readiness to Engage in Self Management High Activities Anxiety Level Calm Cooperation Cooperative Perception Coherent Interest in Health Problem Asks Questions Education Importance Acknowledges Need Does Patient Smoke tobacco or other No substances Smoking Status Never smoker Is Patient Diabetic Yes Functional Assessment Recent Decline in Ability to Perform Denies Any Declines Culture/Catholic/Surgical Nurse Cultural/Catholic Needs that may affect No Treatment Plan Would you allow our hospital food and beverage order clerk to No meet you for the purpose of spiritual/ emotional support? Surgical Nurse to contact place of mandaen No Teaching: Wound Center *Welcome to the Wound Center -Person Taught Patient -Teaching Method Discussion -Response to teaching Verbalize Understanding (a) 1 - + throughout WC - Nurse 1 - General Ulcer Measurement Start: 02/05/25 09:02 Freq: Status: Active Protocol: Activity Type Activity Date Activity User E-sign Co-sign Detail Recorded Client Recorded Date Recorded By Document 02/05/25 09:08 RB [id number] 02/05/25 09:18 RB 02/05/25 09:08 Wound Center Nurse 1 #1 R Gonzalez -Combined with other wound No 2. LLE gonzalez -Combined with other wound No -Current Size (cm) - Length 0.8 -Current Size (cm) - Width 0.5 -Current Size (cm) - Depth 0.1 -Total Square Cm 0.40 -Photo Taken Yes -Tunneling No -Undermining/Tunneling No -Circular Undermining No -Exudate Amt Small -Exudate Type Serosanguineous -Wound Margin Distinct, Outline Attached -Granulation Amt Medium (34-66%) -Granulation Quality [place] -Slough/Fibrin Yes -Necrosis Amt Medium (34-66%) -Necrotic Tissue Type Adherent Slough -Structure Exposed N/A -Texture (Lauren-wound Skin Appearance) Assessed, Scarring -Moisture (Lauren-wound Skin Appearance) Assessed -Color (Lauren-wound Skin Appearance) Assessed -Temperature (Lauren-wound Skin No Abnormality Appearance) (Pt Warm) -Tenderness on Palpation (Lauren-wound No Skin Appearance) -Ulcer Cleansing Wound Cleanser -Foul Odor after Cleansing No -Anesthetic Used 5% Lidocaine Gel Lower Limb Edema Present Yes Right Calf (cm) 30 Right Ankle (cm) 20.5 Left Calf (cm) 32.5 Left Ankle (cm) 21 WC - Nurse 2 - General Ulcer CM Notes Start: 02/05/25 09:02 Freq: Status: Active Protocol: Activity Type Activity Date Activity User E-sign Co-sign Detail Recorded Client Recorded Date Recorded By Document 02/05/25 09:32 DS [id number] 02/05/25 09:34 DS 02/05/25 09:32 Wound Center Nurse 2 2. LLE gonzalez -Time 09:32 -Correct Patient Yes -Correct Side, Site, Position Yes -Correct Procedure Yes -Procedure Performed Yes -Type of Procedure Debridement -Clinical Debridement Subcutaneous -Tissue Removed Subcutaneous -Post Debridement (cm) - Length 0.6 -Post Debridement (cm) - Width 0.5 -Post Debridement (cm) - Depth 0.1 -Total Square (Post) (cm) 0.30 -Area of Debridement (cm) - Length 0.6 -Area of Debridement (cm) - Width 0.5 -Total Square (Area) (cm) 0.30 -Tunneling No -Undermining/Tunneling No -Circular Undermining No -Wound/Ulcer Outcome Not Healed -Ulcer Cleansing gauze -Foul Odor after Cleansing No -Bioengineered Tissue No -Bleeding Controlled with Pressure -Treatment Response Procedure Tolerated Well -Debridement - Subq, 1st 20sq cm Yes Pain Scale: 0-10 Numeric Is Patient Pain Free? Yes WC - Nurse 3 - General Ulcer D/C NN Start: 02/05/25 09:02 Freq: Status: Active Protocol: Activity Type Activity Date Activity User E-sign Co-sign Detail Recorded Client Recorded Date Recorded By Document 02/05/25 09:39 TS [id number] 02/05/25 09:43 TS 02/05/25 09:39 Wound Care Center Nurse 3 2. LLE gonzalez -Ulcer Cleansing Rinsed/ Irrigated with Saline -Primary Dressing Applied C Hydrogel -Primary Dressing Covered/Secured with Dry Gauze, Secured with Tape -Hydrogel 1 Pain Scale: 0-10 Numeric Is Patient Pain Free? Yes WC - Visit Discharge Discharge Condition Stable Ambulatory Status Ambulatory Transportation Private Auto Medication Reconcilliation completed & No provided to patient/care provider Clinical Summary of Care Provided Yes Charges/Coding Multi Select Codes Visit Charges Office Visit/Consults: 29020 OV L4 New 45 min Integumentary Integumentary CPT Codes: 45316 Graciela subq tissue 20 sq cm/< Assessment/Plan Assessment/Plan (1) Non-pressure chronic ulcer of left lower leg with fat layer exposed: CODE(S): L97.922 - Non-pressure chronic ulcer of unspecified part of left lower leg with fat layer exposed (2) Traumatic open wound of left lower leg with delayed healing: CODE(S): S81.802D - Unspecified open wound, left lower leg, subsequent encounter (3) Localized swelling of both lower legs: CODE(S): R22.43 - Localized swelling, mass and lump, lower limb, bilateral (4) Diabetes mellitus type 2, controlled, without complications: CODE(S): E11.9 - Type 2 diabetes mellitus without complications (5) Peripheral artery disease: CODE(S): I73.9 - Peripheral vascular disease, unspecified (6) Coronary artery disease: CODE(S): I25.10 - Atherosclerotic heart disease of [place] coronary artery without angina pectoris QUALIFIERS: Coronary Disease-Associated Artery/Lesion type: [place] artery [place] vs. transplanted heart: [place] heart Associated angina: without angina Qualified Code(s): I25.10 - Atherosclerotic heart disease of [place] coronary artery without angina pectoris (7) Nonalcoholic fatty liver disease: CODE(S): K76.0 - Fatty (change of) liver, not elsewhere classified (8) Atherosclerosis of coronary artery of [place] heart without angina pectoris: CODE(S): I25.10 - Atherosclerotic heart disease of [place] coronary artery without angina pectoris QUALIFIERS: Coronary Disease-Associated Artery/Lesion type: [place] artery Qualified Code(s): I25.10 - Atherosclerotic heart disease of [place] coronary artery without angina pectoris (9) History of coronary artery bypass graft x 3: CODE(S): Z95.1 - Presence of aortocoronary bypass graft (10) Hyperlipidemia: CODE(S): E78.5 - Hyperlipidemia, unspecified QUALIFIERS: Hyperlipidemia type: unspecified Qualified Code(s): E78.5 - Hyperlipidemia, unspecified (11) Essential hypertension: CODE(S): I10 - Essential (primary) hypertension (12) PAC (premature atrial contraction): CODE(S): I49.1 - Atrial premature depolarization (13) Nonrheumatic aortic (valve) stenosis: CODE(S): I35.0 - Nonrheumatic aortic (valve) stenosis (14) Liver fibrosis: CODE(S): K74.00 - Hepatic fibrosis, unspecified (15) History of inferior wall myocardial infarction: CODE(S): I25.2 - Old myocardial infarction (16) GERD (gastroesophageal reflux disease): CODE(S): K21.9 - Gastro-esophageal reflux disease without esophagitis (17) History of carpal tunnel repair: CODE(S): Z98.890 - Other specified postprocedural states (18) History of repair of anterior cruciate ligament of right knee: CODE(S): Z98.890 - Other specified postprocedural states (19) Cirrhosis of liver: CODE(S): K74.60 - Unspecified cirrhosis of liver PLAN: Plan This is a 79-year-old male who presented with a traumatic wound in the left pretibial surface, with origin on December 03, 2024. The wound occurred as result of contact with a mechanical saw. Patient has been advised to optimize his nutritional intake, as well as his diabetic management. He has been advised to elevate his lower extremities is much as possible, to continue sleeping on a flat mattress at night, and to avoid prolonged idle sitting and standing. We are to implement the use of collagen hydrogel topically to the wound on a daily basis. This will be covered with gauze. The patient has been provided the necessary materials, and instructed in the appropriate means of daily application. He is to complete his course of oral antibiotics, which include cephalexin and doxycycline. Patient is to follow-up in 1 week for reevaluation. Total time: 48 minutes
--- NOTE | 2025-02-06 08:42 | WC ---
PHOTO-LEFT OSEGUERA 02/05/25
[2025-02-12 09:14] VITALS: BP 149/71; PULSE 77; RESP 16; TEMP 35.9; BMI 22.2
--- NOTE | 2025-02-12 19:35 | HP.PCM_ITS ---
History of Present Illness Date of Service: 02/12/25 Chief Complaint: Traumatic wound of the left pretibial surface History of Wound: This is a 79-year-old male who was in his normal state of health until December 03, 2024, at which time he sustained a traumatic injury to the left pretibial surface as a result of an inadvertent chainsaw injury. The patient was subsequently seen and evaluated by his primary care physician, Dr. Ashly Grady, on January 30, 2025. At that time, cultures were obtained, and the patient was empirically started on cephalexin and doxycycline orally, for 7- day course. Culture results were subsequently positive for Staphylococcus epidermidis, rare in amount. The patient has been using Neosporin topically. Patient's wound has failed to heal and the expected fashion, and he has been referred for evaluation and management at the [facility]. Patient suffers from multiple pre-existing medical problems, including diabetes mellitus, cirrhosis, hypertension, and coronary artery disease. The patient is not a smoker. A venous duplex examination performed on January 30, 2025, was unremarkable, revealing no evidence of lower extremity thrombophlebitis. The left great saphenous vein was noted to be absent, the result of previous harvesting. The patient claims to sleep on a flat mattress at night. He also claims to ambulate liberally and without limitation. [facility] Medical History Peripheral artery disease Traumatic open wound of left lower leg with delayed healing Non-pressure chronic ulcer of left lower leg with fat layer exposed Localized swelling of both lower legs Cirrhosis of liver Diabetes mellitus type 2, controlled, without complications Non-pressure chronic ulcer of right lower leg with fat layer exposed Coronary artery disease Fatigue Bradycardia Nonalcoholic fatty liver disease Fatty liver Liver fibrosis Preop cardiovascular exam Nonrheumatic aortic (valve) stenosis Segmental and somatic dysfunction of pelvic region Segmental and somatic dysfunction of sacral region Segmental and somatic dysfunction of lumbar region Vitamin D deficiency GERD (gastroesophageal reflux disease) Type 2 diabetes mellitus without complication Essential hypertension Atherosclerosis of coronary artery of 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) PAC (premature atrial contraction) Chest pain on exertion Hyperlipidemia Home Medications ?Medication ?Instructions ?Recorded ?Last Taken ?Type cholecalciferol (vitamin D3) 25 3,000 unit PO QDAY Unknown History mcg (1,000 unit) capsule esomeprazole magnesium 40 mg 40 mg PO DAILY 05/17/19 U nknown History capsule,delayed release (Nexium) fluticasone propionate 50 1 spray intranasal DAILY Unknown History mcg/actuation nasal spray,suspension ascorbic acid (vitamin C) 250 mg 250 mg PO DAILY 11/10 Unknown History tablet empagliflozin 25 mg tablet 25 mg PO QAM 05/11/21 Unkno wn History (Jardiance) cyanocobalamin (vitamin B-12) 1,000 mcg IM QMONTH 07/20 Unknown History 1,000 mcg/mL injection solution diclofenac sodium 1 % topical gel 2 g topical ONCE PRN pain 08/29/24 Unknown History glipizide 10 mg tablet 10 mg PO QDAY 08/29/24 Unkno wn History semaglutide 0.25 mg or 0.5 mg (2 0.5 mg subcut QWEEK 0 08/29/24 Unknown History mg/3 mL) subcutaneous pen injector (Ozempic) vitamin E mixed 400 unit capsule 400 unit PO BID 08/29 Unknown History Allergy/AdvReac Type Severity Reaction Status Date / Time No Known Allergies Allergy Verified 08/29/24 13:59 Family History Brother Diabetes Myocardial infarction Father Diabetes Heart disease Surgical History History of carpal tunnel repair History of repair of anterior cruciate ligament of right knee 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) Social History Smoking Status: Never smoker how long ago did patient quit smokin years ago alcohol intake: never substance use type: does not use caffeine: Yes Type: tea what type of physical activity do you participate in: none Vital Signs Vital Signs Vital Signs: 02/12/25 09:14 Temperature 96.6 F L Temperature Source Temporal Pulse Rate 77 Respiratory Rate 16 Blood Pressure 149/71 H Blood Pressure Mean 97 Blood Pressure Source Monitor Blood Pressure Position Sitting Blood Pressure Location Right Arm Oxygen Delivery Method Room Air Weight Weight: 138 lb Body Mass Index (BMI) 22.2 Physical Exam Const alert, oriented x3, no apparent distress, average body habitus, no limitations and well nourished Constitutional Narrative: The patient's BMI is 22.3. General Appearance: cooperative, comfortable and well developed Orientation / Consciousness: awake, oriented to person, oriented to place and oriented to time Exam Limitations: no limitations HEENT normocephalic and head/scalp atraumatic Head and Scalp: normal to inspection, normocephalic and atraumatic Face and Sinus: normal facial exam Nose: external nose normal External Ear: external ears normal Eyes EOMs intact bilaterally General Eye: normal appearance of both eyes Alignment: alignment normal Resp normal respiratory effort, normal air movement, no retractions and no use of accessory muscles Effort and Inspection: able to speak in complete sentences Extremity no calf tenderness General Extremity: Negative for clubbing or cyanosis Skin Wound Narrative: A small traumatic wound is noted on the patient's left pretibial surface. It is full-thickness in nature, extending through all layers of the dermis and into the subcutaneous tissues. Wound margins are well beveled. Dimensions are documented elsewhere. The wound continues to decrease in size. There is a small amount of bioburden and slough. Slight lauren-wound erythema is noted. Neuro oriented x3, CN's II-XII intact bilaterally, moves all extremities and no focal motor deficits Sensorium / Orientation: awake, alert, oriented to person, oriented to place and oriented to time Speech: speech normal Psych Appearance: grossly normal and appropriate Attitude: calm Activity / Motor Behavior: appropriate eye contact Speech: normal speech Mood & Affect: euthymic mood Thought Process: normal thought process Thought Content: normal thought content Attention / Concentration: attention grossly intact Debridement Note Debridement Note Wound debrided: Left pretibial wound Laterality: Left Type of Debridement: Excisional debridement Anesthesia Used: 5% Lidocaine Gel Depth: Down to and including healthy tissue and in the subcutaneous layer Percentage of wound debrided: 100 Instrument Used: 3mm curette Tissue Removed: Bioburden and slough Severity: Fat Layer Exposed Amount of bleeding with debridement: Mild Bleeding Controlled with: Compression and gauze Patient tolerated procedure: Patient tolerated procedure well Post-Debridement Measurements and Additional Note: Post-Debridement Measurements/Treatment HANNY - Nurse 1 - General Ulcer Assessment Start: 02/05/25 09:02 Freq: Status: Active Protocol: KEISHA Activity Type Activity Date Activity User E-sign Co-sign Detail Recorded Client Recorded Date Recorded By Document 02/05/25 09:08 RB [id number] 02/05/25 09:18 RB Document 02/12/25 09:14 TS [id number] 02/12/25 09:19 TS 02/05/25 02/12/25 09:08 09:14 WC - Today's Visit Information Type of service Initial Visit Follow-up Visit (Physician/FOOT PIECE ASSEMBLER ) Arrival Mode Ambulatory Ambulatory Transfer Assistance None Patient Identification Verified (Name & Yes Yes ) Patient Requires Transmission-Based No No Precautions Safety Precautions Fall Prevention Height and Weight Height 5 ft 6 in Weight 138 lb Weight in Pounds 138.0 lbs Body Mass Index (BMI) 22.2 22.2 BMI Classification Normal Normal Vital Signs Temperature (97.8 F-99.1 F) 96.7 F L 96.6 F L Temperature Source Temporal Temporal Pulse Rate (60-100) 95 77 Pulse Location Monitor Respiratory Rate (12-18) 18 16 Respiratory rate source Observation Observation Oxygen Delivery Method Room Air Room Air Blood Pressure (90/60-120/80) 159/69 H 149/71 H Blood Pressure Mean 99 97 Source Monitor Monitor Position Semi-Fowlers Sitting Blood Pressure Location Left Arm Right Arm History Since Last Visit- (Skip if this is Patient's initial visit) Have you changed medications since your No last visit? Any new allergies or adverse reactions No Had a fall/change in ADL's that may No increase risk of falls Signs or symptoms of abuse and/or No neglect since last visit Have you been in the hospital since your No last visit? Has dressing in place as prescribed Yes Has compression in place as prescribed N/A Has offloadiing in place as prescribed N/A Experienced any changes in pain level or No management Right Footwear Regular Shoe Pain Scale: 0-10 Numeric Is Patient Pain Free? No Yes L gonzalez -Description Aching -Intensity 3 -Duration (hours) Acute -Pain Behavior Irritability -Pain Aggravating Factors Exercise/ Activity, Walking -Alleviating Factors/Interventions Medication -Effectiveness of Alleviating Factor/ Moderately Intervention effective Neuropathy Assessment Feet - Top Side and Bottom <Entered> (a) Communication Assessment Preferred language Italian Fire Alarm Repairer Required No Able to Read Yes Able to Write Yes Communication Tools None Caregiver Communication Skills No Impairment Impairment Right Hearing Abillity Use of Hearing Aid Left Hearing Abillity Use of Hearing Aid Visual Assistive Devices None Teaching Assessment Preferences Verbal,Written, Demonstration Barriers to Learning None Readiness To Learn Excellent Willingness to Engage in Self Management High Activies Readiness to Engage in Self Management High Activities Anxiety Level Calm Cooperation Cooperative Perception Coherent Interest in Health Problem Asks Questions Education Importance Acknowledges Need Does Patient Smoke tobacco or other No substances Smoking Status Never smoker Is Patient Diabetic Yes Functional Assessment Recent Decline in Ability to Perform Denies Any Declines Culture/Restorationist/Zinc Miner Cultural/Restorationist Needs that may affect No Treatment Plan Would you allow our hospital tuberculosis specialist to No meet you for the purpose of spiritual/ emotional support? Zinc Miner to contact place of jew No Teaching: Wound Center *Welcome to the Wound Center -Person Taught Patient -Teaching Method Discussion -Response to teaching Verbalize Understanding (a) 1 - + throughout WC - Nurse 1 - General Ulcer Measurement Start: 02/05/25 09:02 Freq: Status: Active Protocol: Activity Type Activity Date Activity User E-sign Co-sign Detail Recorded Client Recorded Date Recorded By Document 02/05/25 09:08 RB [id number] 02/05/25 09:18 RB Document 02/12/25 09:14 TS [id number] 02/12/25 09:19 TS 02/05/25 02/12/25 09:08 09:14 Wound Center Nurse 1 #1 R Gonzalez -Combined with other wound No 2. LLE gonzalez -Combined with other wound No No -Current Size (cm) - Length 0.8 0.1 -Current Size (cm) - Width 0.5 0.1 -Current Size (cm) - Depth 0.1 0.1 -Total Square Cm 0.40 0.01 -Date of Last Picture (Recall this 02/12/25 field) -Photo Taken Yes Yes -Tunneling No No -Undermining/Tunneling No No -Circular Undermining No No -Exudate Amt Small None Present -Exudate Type Serosanguineous -Wound Margin Distinct, Distinct, Outline Outline Attached Attached -Granulation Amt Medium (34-66%) Large (67-100%) -Granulation Quality [place],Red -Slough/Fibrin Yes No -Necrosis Amt Medium (34-66%) -Necrotic Tissue Type Adherent Slough -Structure Exposed N/A None/Limited to Skin Breakdown -Texture (Lauren-wound Skin Appearance) Assessed, Assessed Scarring -Moisture (Lauren-wound Skin Appearance) Assessed -Color (Lauren-wound Skin Appearance) Assessed Assessed -Temperature (Lauren-wound Skin No Abnormality No Abnormality Appearance) (Pt Warm) (Pt Warm) -Tenderness on Palpation (Lauren-wound No Skin Appearance) -Ulcer Cleansing Wound Cleanser Soap and Water -Foul Odor after Cleansing No No -Anesthetic Used 5% Lidocaine 5% Lidocaine Gel Gel Lower Limb Edema Present Yes Right Calf (cm) 30 Right Ankle (cm) 20.5 Left Calf (cm) 32.5 Left Ankle (cm) 21 WC - Nurse 2 - General Ulcer CM Notes Start: 02/05/25 09:02 Freq: Status: Active Protocol: Activity Type Activity Date Activity User E-sign Co-sign Detail Recorded Client Recorded Date Recorded By Document 02/05/25 09:32 DS [id number] 02/05/25 09:34 DS Document 02/12/25 09:36 DS [id number] 02/12/25 09:38 DS 02/05/25 02/12/25 09:32 09:36 Wound Center Nurse 2 2. JAMEL gonzalez -Time 09:32 09:36 -Correct Patient Yes Yes -Correct Side, Site, Position Yes Yes -Correct Procedure Yes Yes -Procedure Performed Yes Yes -Type of Procedure Debridement Debridement -Clinical Debridement Subcutaneous Subcutaneous -Tissue Removed Subcutaneous Subcutaneous -Post Debridement (cm) - Length 0.6 0.6 -Post Debridement (cm) - Width 0.5 0.3 -Post Debridement (cm) - Depth 0.1 0.1 -Total Square (Post) (cm) 0.30 0.18 -Area of Debridement (cm) - Length 0.6 0.6 -Area of Debridement (cm) - Width 0.5 0.3 -Total Square (Area) (cm) 0.30 0.18 -Tunneling No No -Undermining/Tunneling No No -Circular Undermining No No -Wound/Ulcer Outcome Not Healed Not Healed -Ulcer Cleansing gauze gauze -Foul Odor after Cleansing No No -Bioengineered Tissue No No -Bleeding Controlled with Pressure Pressure -Treatment Response Procedure Procedure Tolerated Well Tolerated Well -Debridement - Subq, 1st 20sq cm Yes Yes Pain Scale: 0-10 Numeric Is Patient Pain Free? Yes Yes WC - Nurse 3 - General Ulcer D/C NN Start: 02/05/25 09:02 Freq: Status: Active Protocol: Activity Type Activity Date Activity User E-sign Co-sign Detail Recorded Client Recorded Date Recorded By Document 02/05/25 09:39 TS [id number] 02/05/25 09:43 TS Document 02/12/25 09:44 TS [id number] 02/12/25 09:45 TS 02/05/25 02/12/25 09:39 09:44 Wound Care Center Nurse 3 2. LLE gonzalez -Ulcer Cleansing Rinsed/ Irrigated with Saline -Primary Dressing Applied C Hydrogel C Hydrogel -Primary Dressing Covered/Secured with Dry Gauze, Dry Gauze, Secured with Secured with Tape Tape -Hydrogel 1 0 Pain Scale: 0-10 Numeric Is Patient Pain Free? Yes Yes WC - Visit Discharge Discharge Condition Stable Stable Ambulatory Status Ambulatory Ambulatory Transportation Private Auto Private Auto Medication Reconcilliation completed & No No provided to patient/care provider Clinical Summary of Care Provided Yes Yes Charges/Coding Procedures Integumentary [id number]: [id number] Graciela subq tissue 20 sq cm/< Assessment/Plan Assessment/Plan (1) Non-pressure chronic ulcer of left lower leg with fat layer exposed: CODE(S): L97.922 - Non-pressure chronic ulcer of unspecified part of left lower leg with fat layer exposed (2) Traumatic open wound of left lower leg with delayed healing: CODE(S): S81.802D - Unspecified open wound, left lower leg, subsequent encounter (3) Localized swelling of both lower legs: CODE(S): R22.43 - Localized swelling, mass and lump, lower limb, bilateral (4) Diabetes mellitus type 2, controlled, without complications: CODE(S): E11.9 - Type 2 diabetes mellitus without complications (5) Peripheral artery disease: CODE(S): I73.9 - Peripheral vascular disease, unspecified (6) Coronary artery disease: CODE(S): I25.10 - Atherosclerotic heart disease of [place] coronary artery without angina pectoris QUALIFIERS: Coronary Disease-Associated Artery/Lesion type: [place] artery [place] vs. transplanted heart: [place] heart Associated angina: without angina Qualified Code(s): I25.10 - Atherosclerotic heart disease of [place] coronary artery without angina pectoris (7) Nonalcoholic fatty liver disease: CODE(S): K76.0 - Fatty (change of) liver, not elsewhere classified (8) Atherosclerosis of coronary artery of [place] heart without angina pectoris: CODE(S): I25.10 - Atherosclerotic heart disease of [place] coronary artery without angina pectoris QUALIFIERS: Coronary Disease-Associated Artery/Lesion type: [place] artery Qualified Code(s): I25.10 - Atherosclerotic heart disease of [place] coronary artery without angina pectoris (9) History of coronary artery bypass graft x 3: CODE(S): Z95.1 - Presence of aortocoronary bypass graft (10) Hyperlipidemia: CODE(S): E78.5 - Hyperlipidemia, unspecified QUALIFIERS: Hyperlipidemia type: unspecified Qualified Code(s): E78.5 - Hyperlipidemia, unspecified (11) Essential hypertension: CODE(S): I10 - Essential (primary) hypertension (12) PAC (premature atrial contraction): CODE(S): I49.1 - Atrial premature depolarization (13) Nonrheumatic aortic (valve) stenosis: CODE(S): I35.0 - Nonrheumatic aortic (valve) stenosis (14) Liver fibrosis: CODE(S): K74.00 - Hepatic fibrosis, unspecified (15) History of inferior wall myocardial infarction: CODE(S): I25.2 - Old myocardial infarction (16) GERD (gastroesophageal reflux disease): CODE(S): K21.9 - Gastro-esophageal reflux disease without esophagitis (17) History of carpal tunnel repair: CODE(S): Z98.890 - Other specified postprocedural states (18) History of repair of anterior cruciate ligament of right knee: CODE(S): Z98.890 - Other specified postprocedural states (19) Cirrhosis of liver: CODE(S): K74.60 - Unspecified cirrhosis of liver PLAN: Plan This is a 79-year-old male who presented with a traumatic wound in the left pretibial surface, with origin on December 03, 2024. The wound occurred as result of contact with a mechanical saw. The patient has been advised to optimize his nutritional intake, as well as his diabetic management. He has been advised to elevate his lower extremities as much as possible, to continue sleeping on a flat mattress at night, and to avoid prolonged idle sitting and standing. We are to continue the use of collagen hydrogel topically to the wound on a daily basis. This will be covered with gauze. The patient has been provided the necessary materials, and instructed in the appropriate means of daily application. He has completed his course of oral antibiotics, which included cephalexin and doxycycline. The patient is to follow-up in 1 week for reevaluation. Total time: 24 minutes
--- NOTE | 2025-02-13 09:24 | WC ---
PHOTO-LEFT OSEGUERA 02/12/25
[2025-02-19 13:31] VITALS: BP 172/86; PULSE 54; RESP 18; TEMP 35.7; BMI 22.2
--- NOTE | 2025-02-19 19:21 | PCM.WC.HP ---
History of Present Illness Date of Service: 02/19/25 Chief Complaint: Traumatic wound of the left pretibial surface History of Wound: This is a 79-year-old male who was in his normal state of health until December 03, 2024, at which time he sustained a traumatic injury to the left pretibial surface as a result of an inadvertent chainsaw injury. The patient was subsequently seen and evaluated by his primary care physician, Dr. Ashly Grady, on January 30, 2025. At that time, cultures were obtained, and the patient was empirically started on cephalexin and doxycycline orally, for 7-day course. Culture results were subsequently positive for Staphylococcus epidermidis, rare in amount. The patient has been using Neosporin topically. Patient's wound has failed to heal and the expected fashion, and he has been referred for evaluation and management at the [facility]. Patient suffers from multiple pre-existing medical problems, including diabetes mellitus, cirrhosis, hypertension, and coronary artery disease. The patient is not a smoker. A venous duplex examination performed on January 30, 2025, was unremarkable, revealing no evidence of lower extremity thrombophlebitis. The left great saphenous vein was noted to be absent, the result of previous harvesting. The patient claims to sleep on a flat mattress at night. He also claims to ambulate liberally and without limitation. [facility] Medical History Peripheral artery disease Traumatic open wound of left lower leg with delayed healing Non-pressure chronic ulcer of left lower leg with fat layer exposed Localized swelling of both lower legs Cirrhosis of liver Diabetes mellitus type 2, controlled, without complications Non-pressure chronic ulcer of right lower leg with fat layer exposed Coronary artery disease Fatigue Bradycardia Nonalcoholic fatty liver disease Fatty liver Liver fibrosis Preop cardiovascular exam Nonrheumatic aortic (valve) stenosis Segmental and somatic dysfunction of pelvic region Segmental and somatic dysfunction of sacral region Segmental and somatic dysfunction of lumbar region Vitamin D deficiency GERD (gastroesophageal reflux disease) Type 2 diabetes mellitus without complication Essential hypertension Atherosclerosis of coronary artery of [place] heart without angina pectoris History of 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/07/10) PAC (premature atrial contraction) Chest pain on exertion Hyperlipidemia Home Medications ?Medication ?Instructions ?Recorded ?Last Taken ?Type cholecalciferol (vitamin D3) 25 3,000 unit PO QDAY 05/17/19 Unknown History mcg (1,000 unit) capsule esomeprazole magnesium 40 mg 40 mg PO DAILY 05/17/19 Unknown History capsule,delayed release (Nexium) fluticasone propionate 50 1 spray intranasal DAILY 05/22/20 Unknown History mcg/actuation nasal spray,suspension ascorbic acid (vitamin C) 250 mg 250 mg PO DAILY 11/10/20 Unknown History tablet empagliflozin 25 mg tablet 25 mg PO QAM 05/11/21 Unknown History (Jardiance) cyanocobalamin (vitamin B-12) 1,000 mcg IM QMONTH 08/29/24 Unknown History 1,000 mcg/mL injection solution diclofenac sodium 1 % topical gel 2 g topical ONCE PRN pain 08/29/24 Unknown History glipizide 10 mg tablet 10 mg PO QDAY 08/29/24 Unknown History semaglutide 0.25 mg or 0.5 mg (2 0.5 mg subcut QWEEK 08/29/24 Unknown History mg/3 mL) subcutaneous pen injector (Ozempic) vitamin E mixed 400 unit capsule 400 unit PO BID 08/29/24 Unknown History Allergy/AdvReac Type Severity Reaction Status Date / Time No Known Allergies Allergy Verified 08/29/24 13:59 Family History Brother Diabetes Myocardial infarction Father Diabetes Heart disease Surgical History History of carpal tunnel repair History of repair of anterior cruciate ligament of right knee 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) Social History Smoking Status: Never smoker how long ago did patient quit smokin years ago alcohol intake: never substance use type: does not use caffeine: Yes Type: tea what type of physical activity do you participate in: none Vital Signs Vital Signs Vital Signs: 02/19/25 13:31 Temperature 96.3 F L Temperature Source Temporal Pulse Rate 54 L Respiratory Rate 18 Blood Pressure 172/86 H Blood Pressure Mean 114 Blood Pressure Source Monitor Blood Pressure Position Semi-Fowlers Blood Pressure Location Left Arm Oxygen Delivery Method Room Air Weight Weight: 138 lb Body Mass Index (BMI) 22.2 Physical Exam Const alert, oriented x3, no apparent distress, average body habitus, no limitations and well nourished Constitutional Narrative: The patient's BMI is 22.3. General Appearance: cooperative, comfortable and well developed Orientation / Consciousness: awake, oriented to person, oriented to place and oriented to time Exam Limitations: no limitations HEENT normocephalic and head/scalp atraumatic Head and Scalp: normal to inspection, normocephalic and atraumatic Face and Sinus: normal facial exam Nose: external nose normal External Ear: external ears normal Eyes EOMs intact bilaterally General Eye: normal appearance of both eyes Alignment: alignment normal Resp normal respiratory effort, normal air movement, no retractions and no use of accessory muscles Effort and Inspection: able to speak in complete sentences Extremity no calf tenderness Extremity Narrative: Patient's right wrist is wrapped and bandaged. General Extremity: Negative for clubbing or cyanosis Skin Wound Narrative: The wound on the patient's left pretibial surface is now completely healed and epithelialized. There is no sign of infection or cellulitis at the site. Neuro oriented x3, CN's II-XII intact bilaterally, moves all extremities and no focal motor deficits Sensorium / Orientation: awake, alert, oriented to person, oriented to place and oriented to time Speech: speech normal Psych Appearance: grossly normal and appropriate Attitude: calm Activity / Motor Behavior: appropriate eye contact Speech: normal speech Mood & Affect: euthymic mood Thought Process: normal thought process Thought Content: normal thought content Attention / Concentration: attention grossly intact Debridement Note Debridement Note No debridement was completed: No debridement was completed today Charges/Coding Visit Charges Office Visits / Consults: 47205 OV L3 Est 20min Assessment/Plan Assessment/Plan (1) Non-pressure chronic ulcer of left lower leg with fat layer exposed: CODE(S): L97.922 - Non-pressure chronic ulcer of unspecified part of left lower leg with fat layer exposed (2) Traumatic open wound of left lower leg with delayed healing: CODE(S): S81.802D - Unspecified open wound, left lower leg, subsequent encounter (3) Localized swelling of both lower legs: CODE(S): R22.43 - Localized swelling, mass and lump, lower limb, bilateral (4) Diabetes mellitus type 2, controlled, without complications: CODE(S): E11.9 - Type 2 diabetes mellitus without complications (5) Peripheral artery disease: CODE(S): I73.9 - Peripheral vascular disease, unspecified (6) Coronary artery disease: CODE(S): I25.10 - Atherosclerotic heart disease of [place] coronary artery without angina pectoris QUALIFIERS: Coronary Disease-Associated Artery/Lesion type: [place] artery [place] vs. transplanted heart: [place] heart Associated angina: without angina Qualified Code(s): I25.10 - Atherosclerotic heart disease of [place] coronary artery without angina pectoris (7) Nonalcoholic fatty liver disease: CODE(S): K76.0 - Fatty (change of) liver, not elsewhere classified (8) Atherosclerosis of coronary artery of [place] heart without angina pectoris: CODE(S): I25.10 - Atherosclerotic heart disease of [place] coronary artery without angina pectoris QUALIFIERS: Coronary Disease-Associated Artery/Lesion type: [place] artery Qualified Code(s): I25.10 - Atherosclerotic heart disease of [place] coronary artery without angina pectoris (9) History of coronary artery bypass graft x 3: CODE(S): Z95.1 - Presence of aortocoronary bypass graft (10) Hyperlipidemia: CODE(S): E78.5 - Hyperlipidemia, unspecified QUALIFIERS: Hyperlipidemia type: unspecified Qualified Code(s): E78.5 - Hyperlipidemia, unspecified (11) Essential hypertension: CODE(S): I10 - Essential (primary) hypertension (12) PAC (premature atrial contraction): CODE(S): I49.1 - Atrial premature depolarization (13) Nonrheumatic aortic (valve) stenosis: CODE(S): I35.0 - Nonrheumatic aortic (valve) stenosis (14) Liver fibrosis: CODE(S): K74.00 - Hepatic fibrosis, unspecified (15) History of inferior wall myocardial infarction: CODE(S): I25.2 - Old myocardial infarction (16) GERD (gastroesophageal reflux disease): CODE(S): K21.9 - Gastro-esophageal reflux disease without esophagitis (17) History of carpal tunnel repair: CODE(S): Z98.890 - Other specified postprocedural states (18) History of repair of anterior cruciate ligament of right knee: CODE(S): Z98.890 - Other specified postprocedural states (19) Cirrhosis of liver: CODE(S): K74.60 - Unspecified cirrhosis of liver PLAN: Plan This is a 79-year-old male who presented with a traumatic wound in the left pretibial surface, with origin on December 03, 2024. The wound occurred as result of contact with a mechanical saw. As of this visit, the patient's wound is completely healed and epithelialized. Therefore, he is to be discharged, I will follow-up henceforth on an as needed basis. He has been instructed to pad and protect the area for another 10 to 14 days to prevent any further injury to the area. Incidentally, it is noted that the patient underwent a right carpal tunnel release procedure approximately 4 days ago. Total time: 22 minutes
--- NOTE | 2025-02-20 11:39 | WC ---
PHOTO-LEFT OSEGUERA 02/19/25
== END 2025-02-19 15:45 | disposition home or self-care (01) ==
LOC: WC 13:30
PROVIDERS: PCP Family Medicine Geriatric Medicine; Referring Provider Family Medicine Geriatric Medicine; Visit Provider Surgery
DX: E11.622 Type 2 diabetes mellitus with other skin ulcer (principal); L97.922 Non-pressure chronic ulcer of unspecified part of left lower leg with fat layer exposed; K74.60 Unspecified cirrhosis of liver; E11.51 Type 2 diabetes mellitus with diabetic peripheral angiopathy without gangrene; E78.5 Hyperlipidemia, unspecified; I25.10 Atherosclerotic heart disease of native coronary artery without angina pectoris; K74.00 Hepatic fibrosis, unspecified; K76.0 Fatty (change of) liver, not elsewhere classified; I49.1 Atrial premature depolarization; Z82.49 Family history of ischemic heart disease and other diseases of the circulatory system; I10 Essential (primary) hypertension; R22.43 Localized swelling, mass and lump, lower limb, bilateral; Z79.84 Long term (current) use of oral hypoglycemic drugs; K21.9 Gastro-esophageal reflux disease without esophagitis; Z79.85 Long-term (current) use of injectable non-insulin antidiabetic drugs; Z83.3 Family history of diabetes mellitus; I25.2 Old myocardial infarction; I35.0 Nonrheumatic aortic (valve) stenosis; S81.802D Unspecified open wound, left lower leg, subsequent encounter; Z95.1 Presence of aortocoronary bypass graft
CPT/HCPCS: 11042; 99213; G0463

== ENCOUNTER → 2025-03-19 | Outpatient (CLI) | payer MEDICARE, OTHER, SELFPAY ==
--- NOTE | 2025-03-19 11:46 | NEURO ---
NCS and/or EMG Patient Report Ordering Doctor: Delta Magana DATE OF SERVICE: 03/19/25 Clinical Summary: 79 year old male patient with symptoms of discomfort in the left hand/wrist. 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 Nerve Conduction Studies Summary: Nerve conduction studies were performed in the left upper extremity. The left median-D2 SNAP distal latency was prolonged. The left median motor conduction velocity was reduced in the forearm segment. Needle Examination Summary: Needle examination of the left upper extremity demonstrated a higher proportion of motor unit action potentials with reduced recruitment, increased amplitude, increased duration, and polyphasia in the left abductor pollicis brevis muscle. Impression: This is an abnormal study. There is electrodiagnostic evidence of at least a mild left median mononeuropathy at the wrist (carpal tunnel syndrome). The presence of chronic neurogenic motor units in the left abductor pollicis brevis muscle can indicate secondary axonal loss but it cannot be determined if this finding is chronic from the prior/remote history of CTS (s/p carpal tunnel release surgery) or represents a recent change as the prior EMG on 09/19/2013 did not sample this muscle. There is no electrodiagnostic evidence of a left ulnar mononeuropathy or cervical radiculopathy. Multi Select Codes Neurology Neurology Interp Codes: 15077-62 Musc test done w/n test comp (interp) (1) and 90975-09 Nrv cndj test 7-8 studies (interp)
== END | disposition home or self-care (01) ==
LOC: PSN 10:25
PROVIDERS: PCP Family Medicine Geriatric Medicine; Referring Provider Student in an Organized Health Care Education/Training Program; Visit Provider Student in an Organized Health Care Education/Training Program
DX: G56.03 Carpal tunnel syndrome, bilateral upper limbs (principal); M81.0 Age-related osteoporosis without current pathological fracture
CPT/HCPCS: 95886; 95910